=== PATIENT | male | born 1950 | race Caucasian/White ===

== ENCOUNTER 2020-12-04 18:46 | Inpatient (IN) | payer MEDICARE, SELFPAY ==
[2020-12-04] VITALS (7 sets, daily range): BP systolic 110–153; BP diastolic 57–82; PULSE 92–106; RESP 20–28; TEMP 36.3–36.8; O2SAT 92–100; BMI 46.7
--- NOTE | ~2020-12-04 | US_ITS ---
EXAMINATION: US renal BI EXAM DATE: 12/05/2020 08:57 INDICATION: Acute kidney insufficiency. TECHNIQUE: Multiple grayscale and Doppler images of the kidneys were obtained (by a technologist who performed the scan) and subsequently reviewed. There is no prior study for comparison. FINDINGS: Severe bilateral renal cortical thinning. Right kidney: There is normal contour and echogenicity. It measures 10.6 x 5.0 x 5.0 centimeters. T here are no focal renal lesions identified. There is no hydronephrosis. Left kidney: There is normal contour and echogenicity. It measures 10.5 x 5.6 x 5.6 centimeters. Th ere are no focal renal lesions identified. There is no hydronephrosis. Bladder unremarkable. IMPRESSION: Bilateral renal cortical thinning, atrophy. No hydronephrosis. Reviewed, dictated and finalized at location A. RUNNER
--- NOTE | ~2020-12-04 | NM_ITS ---
EXAMINATION: NM dread stress w perfusion DATE: 12/06/2020 13:25 INDICATION: Chest pain TECHNIQUE: Rest images were obtained following intravenous administration of 9.2 mCi Tc99m tetrofosmi n (Myoview). The patient was infused intravenously with Lexiscan (Regadenoson). Then, 28.3 mCi Tc99m tetrofosmin (Myoview) was administered intravenously, and stress images were obtained. Data was recon structed into short axis and horizontal and vertical long axis SPECT images. Gated SPECT images were also obtained. COMPARISON: None. FINDINGS: Small mild reversible perfusion defect involving the apical septal and mid anteroseptal seg ments bilingual executive assistant with ischemia. There is normal left ventricular chamber size, wall motion and ejectio n fraction. Left ventricular ejection fraction measures 57%. IMPRESSION: 1. Small region of mild reversible ischemia in the left anterior descending coronary artery vascular distribution involving the apical septal and mid anteroseptal segments. 2. Left ventricular ejection fraction measuring 57%. Reviewed, dictated and finalized at location A. NG MACHINE OPERATOR IMPRESSION: 1. Small region of mild reversible ischemia in the left anterior descending cor onary artery vascular distribution involving the apical septal and mid anterose ptal segments. 2. Left ventricular ejection fraction measuring 57%.
--- NOTE | ~2020-12-04 | XR_ITS ---
XR chest 1V portable DATE: 12/12/2020 05:44 INDICATION: Shortness of breath. Pneumonia. TECHNIQUE: Portable upright AP chest on December 12, 2020 at 0537 hours COMPARISON: September 10, 2021 portable AP chest at 1845 hours FINDINGS: There are bilateral pulmonary infiltrates, particularly in the left mid to upper and bilate ral lower lung donaldson. The infiltrates are increased since December 11, 2020. Heart size is not optimally evaluated on AP projection because of magnification. Heart size appears b orderline or enlarged. There is pulmonary vascular redistribution on this upright examination suggest ing pulmonary venous hypertension. There is minimal if any pleural effusion. No pneumothorax. IMPRESSION: Bilateral infiltrates involving particularly left mid to upper and bilateral lower lungs Borderline or increased heart size and pulmonary vascular redistribution, suggesting mild congestive heart failure Reviewed, dictated and finalized at location A. PHYSICIST IMPRESSION: Bilateral infiltrates involving particularly left mid to upper and bilateral lower lungs Borderline or increased heart size and pulmonary vascular redistribution, sugge sting mild congestive heart failure
--- NOTE | ~2020-12-04 | XR_ITS ---
EXAMINATION: XR chest 1V portable DATE: 12/08/2020 10:48 INDICATION: Recurrent chest pain TECHNIQUE: frontal view of the chest was obtained. COMPARISON: Chest radiograph dated 12/04/2020 FINDINGS: Improved aeration in the bilateral lower lung zones with residual mild opacities along both lung base s which could represent atelectasis and/or pneumonia. No marrow edema, pleural effusion or pneumothor ax. The cardiomediastinal silhouette is within normal limits for AP technique. Visualized bones and s oft tissues are unremarkable. IMPRESSION: 1. Mild bibasilar opacities which could represent atelectasis and/or pneumonia. Reviewed, dictated and finalized at location A. AND TREE SERVICE SPRAY SUPERVISOR
--- NOTE | ~2020-12-04 | XR_ITS ---
EXAMINATION: XR chest 1V portable DATE: 12/11/2020 18:45 INDICATION: Shortness of breath. TECHNIQUE: A single frontal view of the chest was obtained. COMPARISON: Chest single view 12/08/2020 FINDINGS: There are mild airspace opacities in the mid and lower lung zones. No pleural effusion or p neumothorax. The heart size is normal. IMPRESSION: 1. Mild airspace opacities in the mid and lower lung zones with worsening on the right, consistent wi th atelectasis versus pneumonia. Reviewed, dictated and finalized at location A. NESS INSTRUCTOR IMPRESSION: 1. Mild airspace opacities in the mid and lower lung zones with worsening on th e right, consistent with atelectasis versus pneumonia.
--- NOTE | ~2020-12-04 | XR_ITS ---
EXAMINATION: XR chest 1V portable EXAM DATE: 12/04/2020 20:10 INDICATION: Shortness of breath and left-sided chest pain. Dizziness. Nausea. TECHNIQUE: Portable AP frontal chest x-ray was obtained. There is no prior study for comparison. FINDINGS: Exam is underpenetrated. Probable patchy right basilar airspace disease, could be infection , pneumonia. Follow-up PA and lateral recommended when acute symptoms resolve to exclude underlying c hronic process. There is cardiomegaly. There is no pneumothorax suspected. There are no pleural effusions. There are no osseous abnormalities identified. IMPRESSION: Probable right basilar nonspecific airspace disease; please clinically correlate. Reviewed, dictated and finalized at location A. ION MERCHANDISER IMPRESSION: Probable right basilar nonspecific airspace disease; please clinica lly correlate.
--- NOTE | ~2020-12-04 | CT_ITS ---
EXAMINATION: CT brain wo con EXAM DATE: 12/04/2020 19:58 INDICATION: Dizziness. TECHNIQUE: Spiral CT of the head was performed without contrast. Axial, coronal and sagittal images were reviewed. The dose-length product (DLP) for this examination was 681.00 mGy-cm. The exposure w as tailored according to patient size, and iterative reconstruction (ASIR) was used as additional dos e reduction technique. There is no prior study for comparison. FINDINGS: There is no acute intraparenchymal hemorrhage. No evidence of intraparenchymal brain mass lesion. No evidence of acute infarction. Please note that initial head CT has limited sensitivity f or small or acute infarctions. There is mild periventricular and subcortical hypodensity, nonspecific but probably related to small vessel ischemic disease. There is mild prominence of the sulci and v entricles related to cerebral atrophy. There is intracranial carotid arteriosclerosis. There are n o extra-axial collections. There is no mass effect or midline shift. Patient has had bilateral ocul ar lens surgery. Soft tissue is unremarkable. The visualized sinuses and mastoid air cells are well aerated. IMPRESSION: 1. No acute intracranial findings. 2. Chronic age related findings. Reviewed, dictated and finalized at location A. R FABRICATOR
--- NOTE | 2020-12-04 18:55 | PC.NURSE ---
placed on o2 at 2 lpm nc for room air sat 92%
--- NOTE | 2020-12-04 19:00 | ECG_ITS ---
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
[2020-12-04] MEDS: SODIUM CHLORIDE 0.9% IV 1,000 ML 999 ML IV CONT ×2 (19:33→20:25)
--- NOTE | 2020-12-04 19:35 | PC.NURSE ---
pt states he isn't able to urinate due to the tip of my ashley is closing. then explains that pt is uncircumcised and it wont come out. pt states hes seeing a doctor for this issue. states pt may be able to go with a urinal while he lays on his side. refused straight cath. notified.
[2020-12-04 19:45] LABS: Basophils Absolute Auto 0.1 K/mm3 (0.0-0.1); Basophils Percent Auto 0.4 % (0.2-1.2); Eosinophils Absolute Auto 0.3 K/mm3 (0-0.3); Eosinophils Percent Auto 1.9 % (0-4.4); Hematocrit 41.4 % (42.0-52.0); Immature Granulocyte Absolute 0.05 K/mm3 (0.00-0.031); Immature Granulocyte Percent A 0.4 % (0-0.5); Lymphocytes Absolute Auto 2.34 K/mm3 (0.9-3.2); Lymphocytes Percent Auto 16.4 % (18.3-44.2); Mean Corpuscular HGB Conc 33.8 g/dl (32-36); Mean Corpuscular Hemoglobin 32.2 pg (26-34); Mean Corpuscular Volume 95.2 fl (80-100); Mean Platelet Volume 12.2 fl (7.4-10.4); Neutrophils Absolute Auto 10.5 K/mm3 (1.3-6.7); Neutrophils Percent Auto 73.9 % (45.5-73.1); Platelet Count Result 169 k/mm3 (150-375); Red Blood Count 4.35 M/mm3 (4.6-6.20); Red Cell Distribution Width 13.7 % (11.5-14.5); White Blood Count 14.2 K/mm3 (4.5-10.0)
--- NOTE | 2020-12-04 19:51 | PC.NURSE ---
pt to xray/ct
[2020-12-04 19:57] LABS: Alanine Aminotransferase 16 U/L (4-50); Albumin Level 4.1 g/dL (3.5-5.1); Alkaline Phosphatase 84 U/L (38-126); Anion Gap 11 mmol/L (8-16); Aspartate Amino Transferase 21 U/L (17-59); Bilirubin,Total 0.7 mg/dL (0.2-1.3); Blood Urea Nitrogen 40 mg/dL (9-20); Calcium 8.8 mg/dL (8.4-10.2); Carbon Dioxide 24 mmol/L (22-30); Chloride 104 mmol/L (98-107); Estimated CRCL calculation 19 ml/min; Estimated Glomerular Filt Rate 15; Glucose 271 mg/dL (75-110); Lactic Acid Reflex 1.2 mmol/L (0.7-2.1); Potassium 4.2 mmol/L (3.4-5.0); Sodium 139 mmol/L (137-145)
[2020-12-04 20:11] LABS: NT Pro B Type Natriuretic Pept 4670 PG/ML (5-100); Troponin I 0.102 ng/mL (0.000-0.034)
[2020-12-04] MEDS: ASPIRIN 81 MG CHEWABLE TABLET 324 MG PO (20:25)
--- NOTE | 2020-12-04 20:29 | ED.GENADULT ---
HPI - General Adult General Chief complaint: Dizziness Stated complaint: headache dizziness Time Seen by Provider: 12/04/20 19:19 History of Present Illness HPI narrative: Patient is a 70-year-old gentleman who presents the emergency department with chief complaint of lightheadedness and generalized weakness. Patient states is going on for approximately 3 days states he was just started on Trulicity on Sunday. Patient states that he has history of renal insufficiency. The patient reports that today he felt weak and was having difficulty walking around patient was tested for Covid this week and has been negative Related Data Allergies Allergy/AdvReac Type Severity Reaction Status Date / Time Penicillins Allergy Severe Anaphylaxis Verified 12/04/20 18:57 Sulfa (Sulfonamide Allergy Unknown Unknown Verified 12/04/20 18:57 Antibiotics) Review of Systems Review of Systems: Narrative: A 10 system review of systems was completed on the patient and is negative except for what is stated in the HPI. Nursing and ancillary documentation was reviewed. PMFSH Social History Social History Gender identity (if verbalized by the patient): Male Comments Past history of diabetes hypertension and renal insufficiency Social history the patient denies illicit drug use Exam Narrative: Exam Narrative: GENERAL: Well-appearing, well-nourished, and in no acute distress. HEAD: Normocephalic, atraumatic. EYES: PERRLA and EOMI. ENT: Nares clear, no rhinorrhea or epistaxis. Mucous membranes moist. NECK: Supple. CHEST: Clear to auscultation. No respiratory distress. HEART: Regular rate and rhythm. No murmur heard. Normal peripheral pulses. ABDOMEN: Soft, nontender, nondistended, normal active bowel sounds. EXTREMITIES: Normal range of motion. No edema. SKIN: Warm, dry, no rash. NEURO: No focal deficits. Alert and oriented x3. PSYCH: Normal mood and affect. Course Vital Signs Vital signs: Vital Signs Temperature 36.8 C 12/04/20 18:47 Pulse Rate 106 H 12/04/20 18:47 Respiratory Rate 28 H 12/04/20 18:47 Blood Pressure 117/79 12/04/20 18:47 Pulse Oximetry 92 12/04/20 18:47 Temperature 36.8 C 12/04/20 18:47 Pulse Rate 102 H 12/04/20 20:30 Respiratory Rate 21 H 12/04/20 20:30 Blood Pressure 115/82 12/04/20 20:30 Pulse Oximetry 96 12/04/20 20:30 Medical Decision Making Vital Signs Vital Signs: Vital Signs Temperature 36.8 C 12/04/20 18:47 Pulse Rate 106 H 12/04/20 18:47 Respiratory Rate 28 H 12/04/20 18:47 Blood Pressure 117/79 12/04/20 18:47 Pulse Oximetry 92 12/04/20 18:47 Temperature 36.8 C 12/04/20 18:47 Pulse Rate 102 H 12/04/20 20:30 Respiratory Rate 21 H 12/04/20 20:30 Blood Pressure 115/82 12/04/20 20:30 Pulse Oximetry 96 12/04/20 20:30 Lab Data Result diagrams: 12/04/20 19:39 12/04/20 19:39 Labs: Lab Results 12/04/20 12/04/20 12/04/20 Range/Units 19:39 19:39 19:39 WBC 14.2 H (4.5-10.0) K/mm3 RBC 4.35 L (4.6-6.20) M/mm3 Hgb 14.0 (14.0-18.0) g/dL Hct 41.4 L (42.0-52.0) % MCV 95.2 (80-100) fl MCH 32.2 (26-34) pg MCHC 33.8 (32-36) g/dl RDW 13.7 (11.5-14.5) % Plt Count 169 (150-375) k/mm3 MPV 12.2 H (7.4-10.4) fl Immature Gran % (Auto) 0.4 (0-0.5) % Neut % (Auto) 73.9 H (45.5-73.1) % Lymph % (Auto) 16.4 L (18.3-44.2) % [place] % (Auto) 7.0 (2.6-8.5) % Eos % (Auto) 1.9 (0-4.4) % Baso % (Auto) 0.4 (0.2-1.2) % Lymph # (Auto) 2.34 (0.9-3.2) K/mm3 [place] # (Auto) 1.0 H (0.1-0.6) K/mm3 Eos # (Auto) 0.3 (0-0.3) K/mm3 Baso # (Auto) 0.1 (0.0-0.1) K/mm3 Abs Immat Gran (auto) 0.05 H (0.00-0.031) K/mm3 Absolute Neuts (auto) 10.5 H (1.3-6.7) K/mm3 Absolute Nucleated RBC 0.0 (0.0-0.012) K/mm3 Nucleated RBC % 0.0 (0.0-0.2) % Sodium 139 (137-145) mmol/L Potassium 4.2 (3.4-5.0) mmol/L Chloride 104
[2020-12-04 20:32] LABS: Add Urine Microscopic? YES; Amorphous Sediment Urine Few; Appearance Urine Cloudy (Clear); Bacteria Urine 1+ /hpf; Bilirubin Urine Negative (Negative); Blood Urine Negative (Negative); Color Urine Yellow (Yellow); Glucose Urine UA Negative (Negative); Ketones Urine Negative (Negative); Leukocyte Esterase Ur Negative LEU/UL (Negative); Mucus Urine Rare /lpf; Nitrate Urine Negative (Negative); Protein Urine 1+ mg/dL (Negative); RBC Urine 0-2 /hpf (0-2); Specific Grav Ur 1.012 (1.001-1.035); Squamous Epithelial Cell Urine Rare /hpf (Few); Urobilinogen Urine Negative mg/dL (<2.0)
--- NOTE | 2020-12-04 22:05 | PM.IMHP ---
H&P: HPI History of Present Illness Date/Time: 12/04/20 23:35 Chief Complaint: Dizziness, headache, nausea Narrative: Juan Miguel Bobby is a 70 year old male with a past medical history of diabetes, hypertension, hyperlipidemia, obesity, obstructive sleep apnea, BPH and chronic kidney disease who presented to the ER with dizziness, nausea and headache. The patient reports he was started on Trulicity on November 18. He takes Trulicity on Wednesdays. After he took Trulicity this week he began having lightheadedness with standing, dizziness with the room spinning and nausea. He had also noticed that he had become increasingly more weak over the last 3 days. He associated headache with pressure in the top of his head that was a 5/10 in intensity and was made worse with exertion or position changes. He reports that he has been having some decreased appetite with the Trulicity but denies any nausea, diaphoresis or changes in bowel or urinary habits. He had noticed a mild cough that would occur once or twice a day over the last several days. The cough is nonproductive. He denies any fevers or chills. He was tested for COVID yesterday and they told him he they would call him if the COVID was positive. He did not receive call. He was tested for COVID as he is supposed to have an outpatient colonoscopy on Sunday. He reports that over the last 3 days he has noticed chest pain. He reported that the 1st night occur while he was sitting watching TV and lasted about fiber 6 hours. He went to bed and laid down and after a couple of hours the pain resolved. He reports the pain is pressure-like in nature and extends down the sides of both ribs. The 2nd 90 was already in bed when he developed the pressure sensation. He reports that the sensation would get worse when he would stretches arms back to push himself up off the bed. He did have some increased dyspnea with lying back but he thought that this was more due to exertion. He denies any increased lower extremity swelling. He denies a history of CHF but is on 2 diuretics at home. He denies any palpitations. He has not noticed any diaphoresis. He did have some nausea when he had onset of dizziness. It looks like he is on meclizine chronically. Review of Systems Review of Systems: Narrative: 12 systems were reviewed with pertinent positives and negatives per HPI. Except as documented in the HPI, all other systems were reviewed and are negative. [facility] Past Medical History Medical History (Updated 12/05/20 @ 02:50 by Cheyenne Gramajo DO) BPH (benign prostatic hyperplasia) Chronic kidney disease, stage 3 Baseline creatinine 3.14 Diabetes mellitus 12/05/2020 hemoglobin A1c 9.4 Essential hypertension GERD (gastroesophageal reflux disease) Hyperlipidemia Internal hemorrhoids Irritable bowel syndrome Morbid obesity Obstructive sleep apnea on CPAP Surgical History Surgical History (Updated 12/05/20 @ 02:44 by Cheyenne Gramajo DO) History of bilateral carpal tunnel release 2012 History of bilateral cataract extraction History of colonoscopy with polypectomy History of lumbar surgery L4-L5 fusion 1992 History of vasectomy S/P cubital tunnel release Bilateral 2012 Family History Family History Mother Diabetes mellitus Lupus Bone cancer Father Kidney failure Dialysis patient Malignant neoplasm of prostate Sibling Liver cancer A sister with some type of GI cancer Skin cancer Another sister with skin cancer Renal cell carcinoma Brother Social History Social History (Updated 12/05/20 @ 02:41 by Cheyenne Gramajo DO) Social History: He lives in [place] with his of 46 years. They have 2 healthy adult children. He is retired from the [employer]. Smoked 2 packs of cigarettes per day for approximately 15 years. He used to binge drink (30 drinks each weekend) when he was much younger but has not
--- NOTE | 2020-12-04 22:38 | ADMGEN ---
This patient, Juan Miguel Bobby, was admitted to IMU Room 202-01 on 12/04/20 at 2210. Patient/family oriented to hospital policies and general routines including ID bracelet, bed and alarms, visiting hours, pain management, procedures, bathroom and other care routines, personal items, smoking policy, room service/diet, and visiting hours. Information on how to activate the Rapid Response Team has been discussed. Patient/Family are encouraged to report perceived risks to care and to ask questions if they do not understand what they are told or what they should do.
[2020-12-04] MEDS: SODIUM CHLORIDE 0.9% IV 1,000 ML 125 ML IV CONT (23:57)
[2020-12-05] VITALS (15 sets, daily range): BP systolic 121–144; BP diastolic 72–100; PULSE 81–106; RESP 20–32; TEMP 36.2–36.9; O2SAT 93–100
[2020-12-05 00:57] LABS: Hemoglobin A1C 9.4 % (<5.7)
[2020-12-05 01:08] LABS: Troponin I 0.184 ng/mL (0.000-0.034)
[2020-12-05 02:40] LABS: Basophils Absolute Auto 0.1 K/mm3 (0.0-0.1); Basophils Percent Auto 0.4 % (0.2-1.2); Eosinophils Absolute Auto 0.2 K/mm3 (0-0.3); Eosinophils Percent Auto 1.8 % (0-4.4); Hematocrit 37.4 % (42.0-52.0); Hemoglobin 12.7 g/dL (14.0-18.0); Immature Granulocyte Absolute 0.03 K/mm3 (0.00-0.031); Immature Granulocyte Percent A 0.2 % (0-0.5); Lymphocytes Absolute Auto 3.72 K/mm3 (0.9-3.2); Lymphocytes Percent Auto 30.6 % (18.3-44.2); Mean Corpuscular Hemoglobin 31.9 pg (26-34); Mean Platelet Volume 12.6 fl (7.4-10.4); Monocytes Percent Auto 8.2 % (2.6-8.5); Neutrophils Absolute Auto 7.1 K/mm3 (1.3-6.7); Neutrophils Percent Auto 58.8 % (45.5-73.1); Platelet Count Result 148 k/mm3 (150-375); Red Blood Count 3.98 M/mm3 (4.6-6.20); Red Cell Distribution Width 13.6 % (11.5-14.5); White Blood Count 12.1 K/mm3 (4.5-10.0)
[2020-12-05 02:53] LABS: Alanine Aminotransferase 14 U/L (4-50); Albumin Level 3.7 g/dL (3.5-5.1); Alkaline Phosphatase 76 U/L (38-126); Anion Gap 8 mmol/L (8-16); Aspartate Amino Transferase 17 U/L (17-59); Bilirubin,Total 0.5 mg/dL (0.2-1.3); Blood Urea Nitrogen 40 mg/dL (9-20); Calcium 8.7 mg/dL (8.4-10.2); Carbon Dioxide 24 mmol/L (22-30); Chloride 109 mmol/L (98-107); Estimated CRCL calculation 21 ml/min; Estimated Glomerular Filt Rate 17; Glucose 152 mg/dL (75-110); Potassium 3.5 mmol/L (3.4-5.0); Sodium 141 mmol/L (137-145)
[2020-12-05] MEDS: METOPROLOL SUCCINATE EXT REL 100 MG TABCR PO ×2 (03:02→21:43)
[2020-12-05] MEDS: TAMSULOSIN HCL 0.4 MG CAPSULE 0.8 MG PO ×2 (03:03→21:44)
[2020-12-05 03:05] LABS: Troponin I 0.192 ng/mL (0.000-0.034)
[2020-12-05 08:14] LABS: Glucose Point of Care 143 (65-105)
[2020-12-05] MEDS: MECLIZINE HCL 25 MG TABLET PO ×2 (09:01→18:26)
[2020-12-05] MEDS: GLIMEPIRIDE 2 MG TABLET PO (09:01)
[2020-12-05] MEDS: FENOFIBRATE NANOCRYSTALLIZED 145 MG TABLET PO (09:01)
[2020-12-05] MEDS: ENOXAPARIN 30 MG/0.3 ML SYRINGE SUB-Q (09:01)
[2020-12-05] MEDS: NIFEdipine 30 MG TAB.ER.24 90 MG PO (09:01)
[2020-12-05] MEDS: FAMOTIDINE 20 MG TABLET PO ×2 (09:02→18:26)
[2020-12-05] MEDS: ASPIRIN 81 MG CHEWABLE TABLET PO (09:02)
[2020-12-05] MEDS: ATORVASTATIN 40 MG TABLET PO (09:02)
[2020-12-05] MEDS: SODIUM CHLORIDE 0.9% IV 1,000 ML 100 ML IV CONT (10:28)
--- NOTE | 2020-12-05 11:30 | PC.NURSE ---
This patient, Juan Miguel Bobby, was received from [facility] on 12/05/20 at 1130. Received report from KRISTINA Salgado. Patient/family oriented to unit policies and routines.
--- NOTE | 2020-12-05 11:34 | PC.NURSE ---
This patient, Juan Miguel Bobby, was transferred to [facility] on 12/05/20 at 1125. Personal belongings sent with patient. Report given to Emiliano ACEVEDO. Appropriate documentation sent with patient.
[2020-12-05 12:06] LABS: Glucose Point of Care 187 (65-105)
[2020-12-05 12:49] LABS: Troponin I 0.097 ng/mL (0.000-0.034)
--- NOTE | 2020-12-05 15:15 | PM.IMPN ---
Progress Note: A&P Assessment and Plan (1) Postural dizziness with near syncope: Code(s): R42 - Dizziness and giddiness; R55 - Syncope and collapse Status: Acute Assessment and Plan: Patient was started on Trulicity and states that has been having spells of dizziness and lightheadedness since then. 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 (5) Type 2 diabetes mellitus with hyperglycemia: Qualifiers: Diabetes mellitus [facility] insulin use: without [facility] use Qualified Code(s): E11.65 - Type 2 diabetes mellitus with hyperglycemia Code(s): E11.65 - Type 2 diabetes mellitus with hyperglycemia Status: Acute Assessment and Plan: 1800 calorie restricted diet Accu checks ACHS Continue to monitor (6) Obstructive sleep apnea on CPAP: Code(s): G47.33 - Obstructive sleep apnea (adult) (pediatric); Z99.89 - Dependence on other enabling machines and devices Status: Acute Assessment and Plan: Continue CPAP at night time. Subjective Date/time seen: 12/05/20 15:15 States that is still feeling dizzy and lightheaded. Review of Systems Review of Systems: Narrative: Started a new drug and has had dizziness, lightheadedness since 3 days ago also trouble voiding. Constitutional: Comments: no fevers, no rigors, no chills. Eyes: Comments: no vision changes. ENT: Comments: no ear pain, no nasal congesion. Cardiovascular: Comments: no chest pain. Respiratory: Comments: no sob, no cough, no sputum production. Gastrointestinal: Comments: no abdominal pain, nausea but no vomiting. Musculoskeletal: Comments: no joint pain Exam Narrative: Exam Narrative: Lying in bed Const: General: comfortable, no acute distress, alert, awake and Physically active Nutritional Appearance: overweight Orientation/consciousness: patient oriented x3 HENMT: Head: normocephalic Ears: hearing grossly normal bilaterally General nose exam: Normal external nose present Face and sinus: normal facial exam Eyes: Pupils: Equal, round and reactive pupils present EOM: EOMs intact bilaterally Neck: Neck: no lymphadenopathy, supple and no JVD Resp: Effort & Inspection: able to speak in complete sentences Auscultation: clear to auscultation bilaterally Cardio: Jugular venous distension: no JVD Rate: regular rate Rhythm: regular rhythm GI: Inspection: distended, Pannus present and obesity GI Palp: Yes Soft to palpation and Yes No hepatosplenomegaly present Skin: Rashes: no rashes Neuro: General: patient oriented x3 and CN's II-XI intact bilaterally Cranial nerves: Yes CN's II-XII intact bilaterally and Yes Bilaterally intact EOM present Cognition (Neuro): normal cognition Speech: normal speech Motor exam (neuro): 5/5 motor strength present throughout Extrem: General: no pedal edema Objective Data Vital Signs Vital Signs: Vital Signs - 24 hr 12/04/20 18:47 12/04/20 19:34 12/04/20 20:30 Temperature 98.2 F Pulse Rate 106 H 100 102 H Respiratory Rate 28 H 24 H 21 H Blood Pressure 117/79 124/76 115/82 Pulse Oximetry 92 95 96 12/04/20 21:25 12/04/20 21:59 12/04/20 22:15 Temperature Pulse
[2020-12-05 17:07] LABS: Glucose Point of Care 181 (65-105)
--- NOTE | 2020-12-05 17:13 | PM.CNCAR ---
Assessment and Plan Assessment and plan (1) Elevated troponin: Code(s): R77.8 - Other specified abnormalities of plasma proteins Status: Acute Assessment and Plan: Patient has a slight elevation of troponin, fairly flat troponin profile. However he does have chest discomfort which has some elements of angina although I suspect is musculoskeletal. Because of his multiple risk factors, he needs further evaluation. Echo scheduled for tomorrow. Schedule Lexiscan for Sunday or Sunday. Pt's morbid obeisty will decrease the sensitivity and specificity of the results, but w/ this degree of CKD the best option. If the Lexiscan is abnormal, I recommend medical therapy rather than invasive evaluation because of his chronic kidney disease and risk of renal failure with IV contrast exposure, unless the patient develops cardiac instability. Cont ASA, atorvastatin and BP/DM control. (2) Acute kidney injury superimposed on chronic kidney disease: Code(s): N17.9 - Acute kidney failure, unspecified; N18.9 - Chronic kidney disease, unspecified Status: Acute Assessment and Plan: Acute on chronic kidney disease, getting IV fluids. Patient tells me his baseline renal function is 20%, followed by the Dr. Paul Martinez. GFR at baseline, creat not quite there yet; reduce IV fluids. Check orthostatics tmr. Ordered daily BMP. (3) Orthostatic hypotension: Code(s): I95.1 - Orthostatic hypotension Status: Acute Assessment and Plan: Presented with dehydration and orthostatic hypotension thought to be due to Trulicity and his diuretics, torsemide and spironolactone. (4) Hypertension: Code(s): I10 - Essential (primary) hypertension Status: Acute Assessment and Plan: History of hypertension, reasonable control at the moment. History of Present Illness History of Present Illness Consult date/time: 12/05/20 17:13 Consult reason: Other (Elevated troponins) Reason For Visit: acute kidney injury, troponin elevation Narrative: 12/05/2020 Juan Miguel Bobby is a 70-year-old male with whom we were asked to see at the request of the hospitalist for advice and opinion regarding his elevated troponins in consultation. Past medical history of diabetes, hypertension, hyperlipidemia, CKD (followed by Dr. Paul Martinez; pt reports renal fxn is 20%) obesity, obstructive sleep apnea, and morbid obesity. He presented to the ER with dizziness, nausea and headache after starting Trulicity recently. The patient reports that he has had several episodes of chest discomfort since . This happens particularly when he is using his arms such as pulling himself up out of a chair or the bathtub, or straining. He will develop squeezing discomfort on the lateral aspects of his chest and abdomen associated with shortness of breath with any effort. He sits in his chair and rests, and the discomfort will fade away after a few hours. He does have some soreness and tenderness of the left chest. He has no history of heart disease and has had no recent cardiac testing. At home he could only walk for 20 ft before he has to stop because of severe back pain. Since admission, the patient was found to have acute on chronic renal failure and dehydration has been given IV fluids. He still feels dizzy with movement. His diuretics and Trulicity were held. His diabetes appears poorly controlled . Review of Systems Constitutional: Constitutional: Reports body ache(s), Reports lethargy and Reports weakness Eyes: Eyes: Reports no additional eye complaints ENT: Denies epistaxis Cardiovascular: Cardiovascular:
[2020-12-05] MEDS: SODIUM CHLORIDE 0.9% IV 1,000 ML 50 ML IV CONT (18:30)
[2020-12-05] MEDS: OMEGA 3 POLYUNSAT FATTY ACIDS 1 GM CAP PO (21:44)
[2020-12-05 23:46] LABS: Glucose Point of Care 182 (65-105)
[2020-12-06] VITALS (10 sets, daily range): BP systolic 104–147; BP diastolic 53–70; PULSE 59–96; RESP 18–24; TEMP 36.3–37; O2SAT 92–97
--- NOTE | 2020-12-06 | ECHO_ITS ---
Patient Info Name: Juan Miguel Bobby Age: 70 years : 1950 Gender: Male Ht: 64 in Wt: 272 lbs BSA: 2.43 m2 HR: 89 bpm BP: 147 / 70 mmHg Heart Rhythm: Sinus Rhythm Technical Quality: Good Exam Date: 12/06/2020 1:21 PM Exam Location: [facility] Patient Status: Inpatient Admit Date: 12/04/2020 Staff Ordering Physician: Cheyenne Gramajo DO Lawn Specialist: Zeeshan Rich RDCS, RT Attending Provider: Cheyenne Gramajo DO Referring Physician: Avila RIVERA; Exam Type: CA echo doppler color flow Study Info Indications R06.00 - Dyspnea, unspecified Complete two-dimensional, color flow and Doppler transthoracic echocardiogram is performed. Summary 1. Technically difficult study with limited views. 2. Complete two-dimensional, color flow and Doppler transthoracic echocardiogram is performed. 3. Left ventricular systolic function is normal, estimated at 55-60%. 4. There is moderately increased left ventricular wall thickness. 5. The left ventricular diastolic function is grade I diastolic dysfunction. 6. There is trace tricuspid valve regurgitation. 7. Mild pulmonary hypertension, estimated pulmonary arterial systolic pressure is 39 mmHg. Left Ventricle Left ventricular chamber dimension is normal. Left ventricular systolic function is normal, estimated at 55-60%. There is moderately increased left ventricular wall thickness. The left ventricular diastolic function is grade I diastolic dysfunction. Right Ventricle Right ventricular chamber dimension is normal. Right ventricular systolic function is normal. Left Atria Left atrial chamber dimension is normal. Right Atria Right atrial chamber dimension is normal. Aortic Valve The aortic valve is not well visualized. There is no aortic valve stenosis. There is no aortic valve regurgitation. Pulmonic Valve The pulmonic valve is not well visualized. There is trace pulmonic regurgitation. Mitral Valve The mitral valve has normal leaflets. There is trace mitral valve regurgitation. The mitral valve annulus is mildly calcified. Tricuspid Valve The tricuspid valve leaflets are normal. There is trace tricuspid valve regurgitation. Mild pulmonary hypertension, estimated pulmonary arterial systolic pressure is 39 mmHg. Pericardium/Pleural The pericardium appears normal. There is trivial pericardial effusion. Inferior Vena Cava Normal inferior vena cava with >50% collapse upon inspiration consistent with normal right atrial pressure, 5 mmHg. Aorta The aortic root size at the sinus of Valsalva is normal. There is mild aortic atherosclerosis. Left Ventricular Outflow Tract Name Value Normal LVOT 2D LVOT Diameter 2.1 cm LVOT Doppler LVOT Peak Gradient 2 mmHg LVOT Mean Gradient 1 mmHg LVOT VTI 11 cm LVOT VTI/AV VTI Ratio 0.7 LVOT Stroke Volume 39 ml LVOT CO 3.5 l/min LVOT CI 1.4 l/min/m2 Mitral Valve -
[2020-12-06 05:40] LABS: Anion Gap 9 mmol/L (8-16); Blood Urea Nitrogen 37 mg/dL (9-20); Calcium 8.9 mg/dL (8.4-10.2); Carbon Dioxide 21 mmol/L (22-30); Chloride 112 mmol/L (98-107); Estimated CRCL calculation 26 ml/min; Estimated Glomerular Filt Rate 22; Glucose 195 mg/dL (75-110); Sodium 142 mmol/L (137-145)
[2020-12-06 07:55] LABS: Glucose Point of Care 164 (65-105)
[2020-12-06] MEDS: ASPIRIN 81 MG CHEWABLE TABLET PO (08:55)
[2020-12-06] MEDS: ATORVASTATIN 40 MG TABLET PO (08:55)
[2020-12-06] MEDS: ENOXAPARIN 30 MG/0.3 ML SYRINGE SUB-Q (08:55)
[2020-12-06] MEDS: FAMOTIDINE 20 MG TABLET PO ×2 (08:56→16:34)
[2020-12-06] MEDS: NIFEdipine 30 MG TAB.ER.24 90 MG PO (08:56)
[2020-12-06] MEDS: MECLIZINE HCL 25 MG TABLET PO ×2 (08:56→16:34)
[2020-12-06] MEDS: FENOFIBRATE NANOCRYSTALLIZED 145 MG TABLET PO (08:56)
[2020-12-06 09:18] LABS: Basophils Absolute Auto 0.1 K/mm3 (0.0-0.1); Basophils Percent Auto 0.4 % (0.2-1.2); Eosinophils Absolute Auto 0.3 K/mm3 (0-0.3); Eosinophils Percent Auto 1.9 % (0-4.4); Hematocrit 38.3 % (42.0-52.0); Hemoglobin 12.6 g/dL (14.0-18.0); Immature Granulocyte Absolute 0.05 K/mm3 (0.00-0.031); Immature Granulocyte Percent A 0.4 % (0-0.5); Immature Platelet Fraction Pct 12.7 % (0.9-11.2); Lymphocytes Absolute Auto 3.04 K/mm3 (0.9-3.2); Lymphocytes Percent Auto 23.3 % (18.3-44.2); Mean Corpuscular HGB Conc 32.9 g/dl (32-36); Mean Corpuscular Hemoglobin 31.9 pg (26-34); Mean Platelet Volume 13.3 fl (7.4-10.4); Monocytes Absolute Auto 0.9 K/mm3 (0.1-0.6); Monocytes Percent Auto 6.9 % (2.6-8.5); Neutrophils Absolute Auto 8.8 K/mm3 (1.3-6.7); Neutrophils Percent Auto 67.1 % (45.5-73.1); Platelet Count Result 163 k/mm3 (150-375); Red Blood Count 3.95 M/mm3 (4.6-6.20); White Blood Count 13.1 K/mm3 (4.5-10.0)
[2020-12-06 09:35] LABS: Anion Gap 4 mmol/L (8-16); Blood Urea Nitrogen 33 mg/dL (9-20); Calcium 8.7 mg/dL (8.4-10.2); Carbon Dioxide 21 mmol/L (22-30); Chloride 114 mmol/L (98-107); Estimated CRCL calculation 25 ml/min; Estimated Glomerular Filt Rate 21; Glucose 248 mg/dL (75-110); Potassium 4.1 mmol/L (3.4-5.0); Sodium 139 mmol/L (137-145)
--- NOTE | 2020-12-06 10:42 | PC.NURSE ---
To Nuclear medicine per bed.
--- NOTE | 2020-12-06 11:00 | EST_ITS ---
Patient Info Name: Juan Miguel Bobby Age: 70 years : 1950 Gender: Male Ht: 64 in Wt: 270 lbs BSA: 2.42 m2 Heart Rhythm: Sinus Rhythm Exam Date: 12/06/2020 11:39 AM Exam Location: [facility] Stress Patient Status: Inpatient Admit Date: 12/04/2020 Staff Ordering Physician: Isabela Parra MD Attending Provider: sae parker md Exercise Technologist: Maya Madison RDCS Exercise Physician: Sae Parker MD Exam Type: CA stress dread w NM Study Info Indications R07.9 - Chest pain, unspecified A regadenoson stress test was performed. Summary 1. No abnormal ST/T wave changes with exercise. 2. No arrhythmias were observed during the examination. 3. Please correlate with nuclear medicine images, reported separately. 4. No chest discomfort with stress test. Protocol: Lexiscan Stress ECG Details Stage: REST Duration (min): 1 min : 57 sec HR (bpm): 87 SBP (mmHg): --- DBP (mmHg): --- Stage: REST Duration (min): 2 min : 44 sec HR (bpm): 87 SBP (mmHg): 124 DBP (mmHg): 75 Stage: REST Duration (min): 14 min : 23 sec HR (bpm): 85 SBP (mmHg): 124 DBP (mmHg): 75 Stage: STAGE 1 Duration (min): 1 min : 0 sec HR (bpm): 92 SBP (mmHg): 146 DBP (mmHg): 78 Stage: RECOVERY Duration (min): 1 min : 0 sec HR (bpm): 97 SBP (mmHg): 125 DBP (mmHg): 75 Stage: RECOVERY Duration (min): 2 min : 0 sec HR (bpm): 97 SBP (mmHg): 125 DBP (mmHg): 75 Stage: RECOVERY Duration (min): 3 min : 0 sec HR (bpm): 98 SBP (mmHg): 128 DBP (mmHg): 74 Stage: RECOVERY Duration (min): 3 min : 3 sec HR (bpm): 99 SBP (mmHg): 128 DBP (mmHg): 74 Rest HR: 85 bpm Peak HR: 99 bpm Rest Sys BP: 124 mmHg Peak Sys BP: 146 mmHg Max Pred HR: 150 bpm % Max Pred HR: 66 % Target HR: 128 bpm Max RPP: 14,454 bpm*mmHg BP Response: Normal blood pressure response Termination Reason: Completed protocol Cardiac Symptoms: Shortness of breath Total Time: 1 min : 0 sec Rest Carter BP: 75 mmHg Peak Carter BP: 78 mmHg Total Dose: 0.4 mg Resting ECG Normal sinus rhythm - normal ECG. Stress ECG No abnormal ST/T wave changes with exercise. Arrhythmias No arrhythmias were observed during the examination. Report Signatures
--- NOTE | 2020-12-06 13:00 | PC.NURSE ---
Returned from nuclear medicine ].
[2020-12-06 13:31] LABS: Glucose Point of Care 181 (65-105)
[2020-12-06] MEDS: PERFLUTREN LIPID MICROSPHERES 1.5 ML VIAL DILUTED TO 10 ML TOTAL VOLUME IV PUSH (13:41)
--- NOTE | 2020-12-06 15:31 | WPDURCON ---
Assessment and Plan Assessment and plan (1) Phimosis: Code(s): N47.1 - Phimosis Status: Acute Assessment and Plan: Discussed the need for a circumcision as it is inhibiting urination, and could potentially cause infection or ischemia to the glans. He will follow up with Dr. Wyman on 01/04/2021 at 9:15am at our [place]' office. (2) Acute kidney injury: Code(s): N17.9 - Acute kidney failure, unspecified Status: Acute Assessment and Plan: Not caused from retention, PVR was normal at 250cc. VINCE shows no hydronephrosis. Continue Flomax. Ok to remove hutchison. No further evaluation needed at this time. Urology Consult Note HPI Date Seen: 12/06/20 Requesting Physician: Cheyenne Gramajo DO Primary Care Provider: Rashard Berry, Consult Narrative Narrative: Juan Miguel Bobby is a 70 year old male who presented to the ER on 12/04/2020 for weakness and syncope. He is a known patient to our practice and see's Dr. Wyman. He has phimosis which was being treated with Clotrimazole and Betamethazone cream BID. It helped initially but hasn't for a few months. Since being in the hospital he told the staff that he is having trouble urinating because the urine gets trapped behind the foreskin. He has a hard time retracting his foreskin to urinate or to clean it. Dr. Wyman recommended a circumcision but he refused at the last OV in 09/2020. His urine culture is negative, WBC is 13.1 and creatinine is 3.00, VINCE shows no hydronephrosis but bilateral renal atrophy. He is on Tamsulosin for BPH as well, but his PVR was 250cc when he had a catheter placed. He denies chronic UTI's, hesitancy, straining, frequency, hematuria or feeling of incomplete emptying. Review of Systems Cardiovascular: Cardiovascular: Denies chest pain Respiratory: Respiratory: Reports no additional respiratory complaints Gastrointestinal: Gastrointestinal: Denies abdominal pain, Denies nausea and Denies vomiting Genitourinary: Genitourinary: Denies hematuria, Denies dysuria, Denies flank pain, Denies urinary hesitancy and Denies urinary urgency [facility] Past Medical History Medical History BPH (benign prostatic hyperplasia) Chronic kidney disease, stage 3 Baseline creatinine 3.14 Diabetes mellitus 12/05/2020 hemoglobin A1c 9.4 Essential hypertension GERD (gastroesophageal reflux disease) Hyperlipidemia Internal hemorrhoids Irritable bowel syndrome Morbid obesity Obstructive sleep apnea on CPAP Surgical History Surgical History History of bilateral carpal tunnel release 2012 History of bilateral cataract extraction History of colonoscopy with polypectomy History of lumbar surgery L4-L5 fusion 1992 History of vasectomy S/P cubital tunnel release Bilateral 2012 Family History Family History Mother Diabetes mellitus Lupus Bone cancer Father Kidney failure Dialysis patient Malignant neoplasm of prostate Sibling Liver cancer A sister with some type of GI cancer Skin cancer Another sister with skin cancer Renal cell carcinoma Brother Social History Social History Social History: He lives in [place] with his of 46 years. They have 2 healthy adult children. 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 Smoked 2 packs of cigarettes per day for approximately 15 years. He used to binge drink (30 drinks each weekend) when he was much younger but has not done so in at least 5 years. He denies any illicit substance use. Primary care physician: Dr. Rashard Berry Code status: Full code however he states he would not want a tracheostomy or G-tube. Surrogate decision maker: Morena () Smoking packs per day: 2 Smoking
--- NOTE | 2020-12-06 16:08 | PC.NURSE ---
Customer Support Representative called Dr. Parker made aware pt brought in orders for labs to be drawn for kidney center, Pt would like labs to be drawn here while admitted Dr. Parker reports okay to get labs in Am.
--- NOTE | 2020-12-06 16:32 | PM.PNCARD ---
Progress Note: A&P Assessment and Plan (1) Elevated troponin: Code(s): R77.8 - Other specified abnormalities of plasma proteins Status: Acute Assessment and Plan: Patient has a slight elevation of troponin, fairly flat troponin profile. However he does have chest discomfort which has some elements of angina although I suspect is musculoskeletal. Because of his multiple risk factors, he needs further evaluation. Lexiscan stress test interpreted as small area of mild reversibility in the apical septal and mid anteroseptal hale EF 57% without corresponding wall motion abnormality. Possible artifact, however, given clinical circumstances, renal failure conservative management advised unless patient becomes unstable and/or with refractory symptoms. Cont ASA, atorvastatin and BP/DM control. Continue aspirin, statin, beta-medhat and supportive medical therapy. Will review 2D echocardiogram unavailable. Recommendations to follow as appropriate. (2) Acute kidney injury superimposed on chronic kidney disease: Code(s): N17.9 - Acute kidney failure, unspecified; N18.9 - Chronic kidney disease, unspecified Status: Acute Assessment and Plan: Acute on chronic kidney disease, getting IV fluids. Creatinine 3.0 this morning. Continue to monitor for improvement. (3) Orthostatic hypotension: Code(s): I95.1 - Orthostatic hypotension Status: Acute Assessment and Plan: Presented with dehydration and orthostatic hypotension thought to be due to Trulicity and his diuretics, torsemide and spironolactone. Recheck orthostatics. (4) Hypertension: Code(s): I10 - Essential (primary) hypertension Status: Acute Assessment and Plan: History of hypertension, reasonable control at the moment. Subjective Date/time seen: Date of service: 12/06/20 16:32 Follow-up for chest pain, elevated troponin Patient evaluated at bedside in the stress lab. Patient states was having more shortness of breath this morning no chest pain. Was feeling fine otherwise. No nausea. O2 sat stable. Review of Systems Review of Systems: All systems reviewed & are unremarkable except as noted in HPI and below Constitutional: Constitutional: Reports as per HPI, Reports no additional constitutional complaints, Reports lethargy and Reports weakness Eyes: Eyes: Reports as per HPI and Reports no additional eye complaints ENT: Reports as per HPI and Denies epistaxis Cardiovascular: Cardiovascular: Reports as per HPI, Denies chest pain, Denies pedal edema, Denies leg edema, Reports lightheadedness, Reports dyspnea and Reports dyspnea on exertion Respiratory: Respiratory: Reports as per HPI, Denies chest congestion, Denies hemoptysis, Reports dyspnea and Reports dyspnea on exertion Gastrointestinal: Gastrointestinal: Reports as per HPI, Denies abdominal pain and Denies hematemesis Genitourinary: Genitourinary: Reports as per HPI and Denies hematuria Musculoskeletal: Musculoskeletal: Reports as per HPI and Reports back pain Integumentary/Breasts: Skin/Breast: Reports as per HPI and Denies rash Neurologic: Reports as per HPI, Denies Abnormal speech present, Denies confusion and Reports weakness Psychiatric: Psychiatric: Reports as per HPI and Denies confusion Endocrine: Endocrine: Reports no additional endocrine complaints Hematologic/Lymphatic: Hematologic/Lymphatic: Reports no additional hematologic/lymphatic complaints Allergic/Immunologic: Allergic/Immunologic: Reports no additional allergic/immunologic complaints Exam Narrative: Exam Narrative: Morbidly obese male lying supine in bed no apparent distress Const: General: no acute distress; No confusion Orientation/consciou
[2020-12-06 16:33] LABS: Glucose Point of Care 226 (65-105)
--- NOTE | 2020-12-06 16:34 | PM.CNNEP ---
Assessment and Plan Assessment and plan (1) Acute kidney injury: Code(s): N17.9 - Acute kidney failure, unspecified Status: Acute Assessment and Plan: presumably due to volume depletion given presentation with orthostatic hypotension likely worsened by continued use of PRASHANTH-I and diuretics (torsemide + spironolactone) improvement noted with gentle IVF hydration and hold potential offending agents follow trend of repeat labs and UOP follow orthostatics (2) Chronic kidney disease, stage IV (severe): Code(s): N18.4 - Chronic kidney disease, stage 4 (severe) Status: Acute Assessment and Plan: baseline creatinine not clear (but reported at 3.14mg/dl) presumably due to hypertension, diabetes, and vascular disease patient follows with Dr. Paul Piña for CKD management per patient, he was told his kidney function was 20% when last seen by Dr. Piña trying to obtain records from PCP and primary pipeline dispatcher to verify baseline creatinine (3) Orthostatic hypotension: Code(s): I95.1 - Orthostatic hypotension Status: Resolved Assessment and Plan: slow improvement noted given history of diabetes, may also have a component of autonomic dysfunction as well (4) Hypertension: Code(s): I10 - Essential (primary) hypertension Status: Acute Assessment and Plan: reasonable control at this time follow trend of hemodynamics (5) Diabetes: Code(s): E11.9 - Type 2 diabetes mellitus without complications Status: Acute Assessment and Plan: follow accuchecks glycemic control Will continue to follow. History of Present Illness Reason for Consult Consult date: 12/06/20 Reason for consult: acute renal failure Chief Complaint Chief complaint: acute kidney injury, troponin elevation History of Present Illness Narrative: The patient is a 70-year-old male with a past medical history as outlined below who presented to [facility] Emergency room with complaints of dizziness associated with nausea and headache. Apparently, the patient believes that since taking a new medication, specifically [place], he has been having issues and problems with lightheadedness, dizziness, and associated vertigo. Furthermore, in the last several days, he has noticed himself getting more weaker and weaker due to the symptoms. He gave no other symptoms with regard to fevers or chills and reportedly he was recently tested for COVID and was negative on the assumption that he never received a call that he was positive. He also gave symptoms of rib pain as well as some shortness of breath when lying flat as well. He has not reported any worsening lower extremity edema/swelling. However, because of the persistence of the symptoms, he came to the ER for further evaluation. Workup and evaluation emergency room did demonstrate all of the above-mentioned symptoms and it was noted that he was quite orthostatic by vital signs when checked. Routine blood test demonstrated labs consistent with his known history of chronic kidney disease but his BUN and creatinine were reportedly higher than baseline (I am not entirely sure what his baseline creatinine is though ). Imaging studies were unrevealing as to a cause of his dizziness and lightheadedness but it was felt that volume depletion was playing a role given these he is on diuretic therapy as well as blood pressure medications chronically. For all these reasons and the constellation of symptoms as mentioned above, he was admitted the hospital for further evaluation and therapy. Since admission and with gentle IV fluid hydration along with holding some of his blood pressure medications and diuretics, his orthostatic hypotension seems to have improved. He overall feels better but still somewhat weak and fatigued in comparison to his baseline. Renal consultation was requested due to his acute kidney injury/acut
[2020-12-06] MEDS: INSULIN ASPART (*BKC) 100 UNITS/ML SUB-Q (17:38)
[2020-12-06] MEDS: SODIUM CHLORIDE 0.9% IV 1,000 ML 50 ML IV CONT (17:42)
--- NOTE | 2020-12-06 18:41 | PM.IMPN ---
Progress Note: A&P Assessment and Plan (1) Acute kidney injury superimposed on chronic kidney disease: Code(s): N17.9 - Acute kidney failure, unspecified; N18.9 - Chronic kidney disease, unspecified Status: Acute Assessment and Plan: Receiving fluids Cr at 3 today Renal US reviewed Renal panel in progress Appreciate Nephro note Continue to monitor Daily BMP (2) Orthostatic hypotension: Code(s): I95.1 - Orthostatic hypotension Status: Acute Assessment and Plan: Resolved Likely caused by meds Currently holding (3) Hypertension: Code(s): I10 - Essential (primary) hypertension Status: Acute Assessment and Plan: Continue home meds Holding diuretics (4) Postural dizziness with near syncope: Code(s): R42 - Dizziness and giddiness; R55 - Syncope and collapse Status: Acute Assessment and Plan: As above (5) Obstructive sleep apnea on CPAP: Code(s): G47.33 - Obstructive sleep apnea (adult) (pediatric); Z99.89 - Dependence on other enabling machines and devices Status: Acute Assessment and Plan: CPAP at night time. (6) Elevated troponin: Code(s): R77.8 - Other specified abnormalities of plasma proteins Status: Acute Assessment and Plan: Lesixcan reviewed Appreciate Cardiology note. Supportive care Medical management at the moment (7) Type 2 diabetes mellitus with hyperglycemia: Qualifiers: Diabetes mellitus intermediate manager insulin use: without intermediate manager use Qualified Code(s): E11.65 - Type 2 diabetes mellitus with hyperglycemia Code(s): E11.65 - Type 2 diabetes mellitus with hyperglycemia Status: Acute Assessment and Plan: ISS as needed Lantus + Post pandreal (8) Phimosis: Code(s): N47.1 - Phimosis Status: Acute Assessment and Plan: Follow up in the outpatient setting. Subjective Date/time seen: 12/06/20 18:41 States that he feels fine Review of Systems Review of Systems: Narrative: denies any issues at this time All systems reviewed & are unremarkable except as noted in HPI and below (hpi ) Exam Narrative: Exam Narrative: Lying in bed. Const: General: no acute distress, alert and awake Nutritional Appearance: overweight Orientation/consciousness: patient oriented x3 Limitations: no limitations HENMT: Head: normocephalic Ears: hearing grossly normal bilaterally General nose exam: Normal external nose present Face and sinus: normal facial exam Eyes: General: appearance normal, both eyes and all related structures Pupils: Equal, round and reactive pupils present EOM: EOMs intact bilaterally Neck: Neck: no lymphadenopathy, supple and no JVD Resp: Effort & Inspection: able to speak in complete sentences Auscultation: clear to auscultation bilaterally Cardio: Jugular venous distension: no JVD Rate: regular rate Rhythm: regular rhythm GI: Inspection: Pannus present and obesity GI Palp: Yes Soft to palpation and Yes No hepatosplenomegaly present Skin: Rashes: no rashes Neuro: General: patient oriented x3 and CN's II-XI intact bilaterally Cranial nerves: Yes CN's II-XII intact bilaterally and Yes Equal, round and reactive pupils present Cognition (Neuro): normal cognition Speech: normal speech Motor exam (neuro): 5/5 motor strength present throughout Extrem: General: no pedal edema Objective Data Vital Signs Vital Signs: Vital Signs - 24 hr 12/05/20 21:30 12/05/20 21:36 12/05/20 21:43 Temperature 97.1 F L Pulse Rate 91 93 90 Respiratory Rate 20 Blood Pressure 142/78 H Pulse Oximetry 93 93 12/06/20 00:00 12/06/20 04:00 12/06/20 06:00 Temperature 98.6 F Pulse Rate 87 87 86 Respiratory Rate 18 Blood Pressure 147/70 H Pulse Oximetry 92 12/06/20 08:55 12/06/20 12:00 12/06/20 14:00 Temperature 97.9 F Pulse Rate 87 96 91 Respiratory Rate 24 H Blood Pressure 119/63 Pulse Oximetry 92 96 02
[2020-12-06] MEDS: TAMSULOSIN HCL 0.4 MG CAPSULE 0.8 MG PO (20:48)
[2020-12-06] MEDS: OMEGA 3 POLYUNSAT FATTY ACIDS 1 GM CAP PO (20:48)
[2020-12-06] MEDS: METOPROLOL SUCCINATE EXT REL 100 MG TABCR PO (20:48)
[2020-12-06 21:36] LABS: Glucose Point of Care 223 (65-105)
[2020-12-07] VITALS (13 sets, daily range): BP systolic 119–148; BP diastolic 57–96; PULSE 80–110; RESP 18–26; TEMP 36.1–36.5; O2SAT 92–97
[2020-12-07 06:00] LABS: Albumin Level 3.6 g/dL (3.5-5.1); Anion Gap 7 mmol/L (8-16); Blood Urea Nitrogen 28 mg/dL (9-20); Calcium 8.9 mg/dL (8.4-10.2); Carbon Dioxide 20 mmol/L (22-30); Chloride 114 mmol/L (98-107); Estimated CRCL calculation 28 ml/min; Estimated Glomerular Filt Rate 23; Glucose 172 mg/dL (75-110); Magnesium 1.9 mg/dL (1.6-2.3); Phosphorus 3.2 mg/dL (2.5-4.5); Sodium 141 mmol/L (137-145)
[2020-12-07 06:32] LABS: Creatinine Urine 61.8 mg/dL; Total Protein Urine Random 45 mg/dL; Ur Ttl Prot Creatinine Ratio 0.73 mg/mg (0-0.20)
[2020-12-07 06:49] LABS: MALB Creatinine Ratio 166.6 mg/g (0-30); Microalbumin Urine Random 101.6 mg/L (0-16.7)
[2020-12-07 07:42] LABS: Glucose Point of Care 163 (65-105)
[2020-12-07] MEDS: ASPIRIN 81 MG CHEWABLE TABLET PO (09:50)
[2020-12-07] MEDS: ATORVASTATIN 40 MG TABLET PO (09:50)
[2020-12-07] MEDS: MECLIZINE HCL 25 MG TABLET PO ×2 (09:50→17:51)
[2020-12-07] MEDS: NIFEdipine 30 MG TAB.ER.24 90 MG PO (09:51)
[2020-12-07] MEDS: ENOXAPARIN 30 MG/0.3 ML SYRINGE SUB-Q (09:51)
[2020-12-07] MEDS: FENOFIBRATE NANOCRYSTALLIZED 145 MG TABLET PO (09:51)
[2020-12-07] MEDS: FAMOTIDINE 20 MG TABLET PO ×2 (09:51→17:51)
[2020-12-07] MEDS: BETAMETHASONE/CLOTRIMAZOLE CR 15 GM TUBE 1 APPLIC TOPICAL ×2 (09:51→21:25)
--- NOTE | 2020-12-07 11:24 | PM.IMPN ---
Progress Note: A&P Assessment and Plan (1) Acute kidney injury superimposed on chronic kidney disease: Code(s): N17.9 - Acute kidney failure, unspecified; N18.9 - Chronic kidney disease, unspecified Status: Acute Assessment and Plan: Receiving fluids, hutchison out. Cr at 2.7 nephrology rounding, sp renal scan (2) Orthostatic hypotension: Code(s): I95.1 - Orthostatic hypotension Status: Resolved (3) Hypertension: Code(s): I10 - Essential (primary) hypertension Status: Acute Assessment and Plan: Continue home meds (4) Postural dizziness with near syncope: Code(s): R42 - Dizziness and giddiness; R55 - Syncope and collapse Status: Acute Assessment and Plan: As above (5) Obstructive sleep apnea on CPAP: Code(s): G47.33 - Obstructive sleep apnea (adult) (pediatric); Z99.89 - Dependence on other enabling machines and devices Status: Acute Assessment and Plan: CPAP at night time. (6) Elevated troponin: Code(s): R77.8 - Other specified abnormalities of plasma proteins Status: Acute Assessment and Plan: Lexiscan reviewed Appreciate Cardiology note. Conservative management (7) Type 2 diabetes mellitus with hyperglycemia: Qualifiers: Diabetes mellitus termite inspector insulin use: without termite inspector use Qualified Code(s): E11.65 - Type 2 diabetes mellitus with hyperglycemia Code(s): E11.65 - Type 2 diabetes mellitus with hyperglycemia Status: Acute Assessment and Plan: Lantus and SSI (8) Phimosis: Code(s): N47.1 - Phimosis Status: Acute Assessment and Plan: Follow up in the outpatient setting, seen by urology. Subjective Date/time seen: 12/07/20 11:24 70 year old male with a past medical history of diabetes, hypertension, hyperlipidemia, obesity, obstructive sleep apnea, BPH and chronic kidney disease who presented to the ER with dizziness, nausea and headache. Pt seen by nephrology, cardiology and urology. Pt had Hutchison removed. Pt to had Lexiscan for elevated troponin and intermittent chest pain. Review of Systems Review of Systems: All systems reviewed & are unremarkable except as noted in HPI and below Exam Narrative: Exam Narrative: Lying in bed. Eyes: General: appearance normal, both eyes and all related structures Neck: Neck: no JVD Resp: Auscultation: clear to auscultation bilaterally Cardio: Jugular venous distension: no JVD Rate: regular rate Rhythm: regular rhythm GI: Inspection: obesity Skin: Rashes: no rashes Neuro: General: patient oriented x3 and CN's II-XI intact bilaterally Extrem: General: no pedal edema Objective Data Vital Signs Vital Signs: Vital Signs - 24 hr 12/06/20 12:00 12/06/20 14:00 12/06/20 16:00 Temperature 36.6 C Pulse Rate 96 91 94 Respiratory Rate 24 H Blood Pressure 119/63 Pulse Oximetry 96 12/06/20 20:00 12/06/20 20:48 12/06/20 22:31 Temperature 36.3 C L Pulse Rate 59 L 80 59 L Respiratory Rate 22 H Blood Pressure 104/53 L Pulse Oximetry 97 95 12/07/20 00:00 12/07/20 04:00 12/07/20 09:45 Temperature 36.5 C Pulse Rate 84 83 Respiratory Rate 22 H Blood Pressure 131/64 Pulse Oximetry 97 95 Intake/Output Intake/Output: Intake & Output 12/04/20 12/05/20 12/06/20 12/07/20 23:59 23:59 23:59 23:59 Intake Total 2810 2400 680 Output Total 50 1075 2100 1000 Balance -50 1735 300 -320 Meds/Results Medications: Active Medications Generic Name Dose Route Start Last Admin Trade Name Jtq PRN Reason Stop Dose Admin Acetaminophen 650 mg 12/05/20 17:31 Acetaminophen 325 Mg Tablet PO Q6H PRN Mild Pain (1-3) or Fever Aspirin 81 mg 12/05/20 08:00 12/07/20 09:50 Aspirin 81 Mg Chewable Tablet PO 81 mg DAILY@0800 ISSAC Administration Atorvastatin Calcium 40 mg 12/05/20 09:00 12/07/20 09:50 Atorvastatin 40 Mg Tablet PO 40 mg DAILY SC
[2020-12-07 12:11] LABS: Glucose Point of Care 213 (65-105)
--- NOTE | 2020-12-07 12:19 | PM.PNNEP ---
Progress Note: A&P Assessment and Plan (1) Acute kidney injury: Code(s): N17.9 - Acute kidney failure, unspecified Status: Acute Assessment and Plan: presumably due to volume depletion given presentation with orthostatic hypotension likely worsened by continued use of PRASHANTH-I and diuretics (torsemide + spironolactone) improvement noted with gentle IVF hydration and holding any potential offending agents follow trend of repeat labs and UOP follow orthostatics (2) Chronic kidney disease, stage IV (severe): Code(s): N18.4 - Chronic kidney disease, stage 4 (severe) Status: Acute Assessment and Plan: baseline creatinine 3.1mg/dl in October 2020 presumably due to hypertension, diabetes, and vascular disease patient follows with Dr. Paul Piña for CKD management (3) Orthostatic hypotension: Code(s): I95.1 - Orthostatic hypotension Status: Resolved Assessment and Plan: slow improvement noted given history of diabetes, may also have a component of autonomic dysfunction as well (4) Hypertension: Code(s): I10 - Essential (primary) hypertension Status: Acute Assessment and Plan: reasonable control at this time follow trend of hemodynamics (5) Diabetes: Code(s): E11.9 - Type 2 diabetes mellitus without complications Status: Acute Assessment and Plan: follow accuchecks glycemic control Will continue to follow. Subjective Date/time seen: 12/07/20 12:19 Appears to be doing reasonably well at the time of my visit; dizziness/lightheadedness appears better; no issues/events overnight or earlier this AM. Exam Narrative: Exam Narrative: General: WD/WN male in NAD Heart: normal S1 and S2; no rub Lungs: clear to auscultation Abdomen: soft, nontender, nondistended, positive bowel sounds Extremities: no cyanosis or clubbing; no edema Skin: warm and dry Objective Data Vital Signs Vital Signs: Vital Signs Temp Pulse Resp BP Pulse Ox 12/07/20 09:45 95 12/07/20 08:00 84 12/07/20 04:00 36.5 C 83 22 H 131/64 97 12/07/20 00:00 84 12/06/20 22:31 59 L 95 12/06/20 20:48 80 12/06/20 20:00 36.3 C L 59 L 22 H 104/53 L 97 12/06/20 16:00 94 12/06/20 14:00 36.6 C 91 24 H 119/63 96 Intake/Output Intake/Output: Intake & Output 12/04/20 12/05/20 12/06/20 12/07/20 23:59 23:59 23:59 23:59 Intake Total 2810 2400 680 Output Total 50 1075 2100 1000 Balance -50 1735 300 -320 Meds/Results Medications: Active Medications Generic Name Dose Route Start Last Admin Trade Name Freq PRN Reason Stop Dose Admin Acetaminophen 650 mg 12/05/20 17:31 Acetaminophen 325 Mg Tablet PO Q6H PRN Mild Pain (1-3) or Fever Aspirin 81 mg 12/05/20 08:00 12/07/20 09:50 Aspirin 81 Mg Chewable Tablet PO 81 mg DAILY@0800 ISSAC Administration Atorvastatin Calcium 40 mg 12/05/20 09:00 12/07/20 09:50 Atorvastatin 40 Mg Tablet PO 40 mg DAILY ISSAC Administration Clotrimazole 1 applic 12/07/20 09:00 12/07/20 09:51 Betamethasone/Clotrimazole Cr 15 Gm Tube TOPICAL 1 applic Q12HR ISSAC Administration Dextrose 12.5 gm 12/05/20 02:24 Dextrose 50% 25 Gm/50 Ml Syringe IV PUSH PRN PRN Hypoglycemia Protocol Docusate Sodium 100 mg 12/05/20 18:16 Docusate Sodium 100 Mg Capsule PO Q12HR PRN Constipation Enoxaparin Sodium 30 mg 12/05/20 09:00 12/07/20 09:51 Enoxaparin 30 Mg/0.3 Ml Syringe SUB-Q 30 mg DAILY ISSAC Administration Famotidine 20 mg 12/05/20 09:00 12/07/20 09:51 Famotidine 20 Mg Tablet PO 20 mg BID ISSAC Administration Fenofibrate 145 mg 12/05/20 09:00 12/07/20 09:51 Fenofibrate Nanocrystallized 145 Mg Tablet PO 145 mg DAILY ISSAC Administration Fish Oil 1 gm 12/05/20 21:00 12/06/20 20:48 [place] 3 Polyunsat Fatty Acids 1 Gm Cap PO 1 gm HS ISSAC Administration Gluca
[2020-12-07] MEDS: INSULIN ASPART (*BKC) 100 UNITS/ML SUB-Q (12:36)
[2020-12-07] MEDS: SODIUM CHLORIDE 0.9% IV 1,000 ML 50 ML IV CONT (16:45)
--- NOTE | 2020-12-07 16:55 | PM.PNCARD ---
Progress Note: A&P Assessment and Plan (1) Elevated troponin: Code(s): R77.8 - Other specified abnormalities of plasma proteins Status: Acute Assessment and Plan: Patient has a slight elevation of troponin, fairly flat troponin profile. However he does have chest discomfort which has some elements of angina although I suspect is musculoskeletal. Because of his multiple risk factors, he needs further evaluation. Lexiscan stress test interpreted as small area of mild reversibility in the apical septal and mid anteroseptal hale EF 57% without corresponding wall motion abnormality. Possible artifact, however, given clinical circumstances, renal failure conservative management advised unless patient becomes unstable and/or with refractory symptoms. Cont ASA, atorvastatin and BP/DM control. Continue aspirin, statin, beta-medhat and supportive medical therapy. Will review 2D echocardiogram personally reviewed no wall motion abnormalities EF 55-60%. Explained to patient's and the patient we will continue to aggressive medically manage for possibility of underlying CAD given stress test results. I do not feel the patient has suffered a myocardial infarction during this hospitalization. Furthermore, we discussed the risk versus benefit of invasive angiography and as patient is not exhibiting clear anginal symptoms and his desire to avoid risking declining kidney function and hemodialysis will continue with conservative medical management. If patient becomes hemodynamically stable and or with concerning anginal symptoms and which benefit of angiography outweighs risk will reconsider at that time. Patient and verbalized understanding and agreed with plan of care. Furthermore, discussed how his stress test did not indicate an area of prior myocardial infarction but small reversible defect suggestive of underlying obstructive CAD. however, given preserved LV function, small area risk would indicate a low risk abnormality and which medical therapy and observation appropriate. Patient should be followed up as an outpatient with Dr. Parra within 4 weeks post discharge. Will see pt as needed. please call with additional questions or concerns. Spent 39 minutes in the care of this patient including bedside, evaluation, family discussion, and chart review. (2) Acute kidney injury superimposed on chronic kidney disease: Code(s): N17.9 - Acute kidney failure, unspecified; N18.9 - Chronic kidney disease, unspecified Status: Acute Assessment and Plan: Acute on chronic kidney disease, getting IV fluids. Continue to monitor renal function, Slow improvement creatinine 2.7. (3) Orthostatic hypotension: Code(s): I95.1 - Orthostatic hypotension Status: Resolved Assessment and Plan: Presented with dehydration and orthostatic hypotension thought to be due to Trulicity and his diuretics, torsemide and spironolactone. Remains off diuretic therapy. (4) Hypertension: Code(s): I10 - Essential (primary) hypertension Status: Acute Assessment and Plan: BP control fair but somewhat labile. Subjective Date/time seen: Date of service:12/07/20 16:55 Follow-up for elevated troponin, chest pain, CKD at bedside. Lengthy discussion held with her discussing his current care, stress test results recommendations. Patient is sleeping then awoke during the interview. Patient complained of left-sided discomfort off and on lasting up to 2 hours random described as tiny animals making a fire, warmth in his chest no heaviness or pressure. No aggravating or relieving factors. Patient was quite tender left chest wall upon palpation. had multiple questions whi
[2020-12-07 17:30] LABS: Glucose Point of Care 196 (65-105)
--- NOTE | 2020-12-07 18:42 | ECG_ITS ---
Measurements Intervals [place] Rate: 108 P: 24 NC: 153 QRS: 36 QRSD: 107 T: 70 QT: 350 QTc: 469 Interpretive Statements SINUS TACHYCARDIA NONSPECIFIC ST & T-WAVE ABNORMALITY- DIFFUSE LEADS BASELINE ARTIFACT- I, III, AVL, V3 ABNORMAL ECG Electronically Signed On 12-08-2020 6:47:18 [employer] by Navin Johnson D.O.
[2020-12-07 19:19] LABS: Troponin I 0.026 ng/mL (0.000-0.034)
[2020-12-07] MEDS: WATER FOR IRRIGATION, STERILE 1,000 ML BOTTLE 1000 ML (19:34)
[2020-12-07] MEDS: MAG HYDROX/AL HYDROX/SIMETH 30 ML UDC PO (21:10)
[2020-12-07] MEDS: METOPROLOL SUCCINATE EXT REL 100 MG TABCR PO (21:28)
[2020-12-07] MEDS: TAMSULOSIN HCL 0.4 MG CAPSULE 0.8 MG PO (21:28)
[2020-12-07] MEDS: OMEGA 3 POLYUNSAT FATTY ACIDS 1 GM CAP PO (21:29)
[2020-12-07 22:24] LABS: Glucose Point of Care 280 (65-105)
[2020-12-08] VITALS (8 sets, daily range): BP systolic 112–151; BP diastolic 76–87; PULSE 80–95; RESP 18–20; TEMP 36.1–37.2; O2SAT 93–98
[2020-12-08 06:55] LABS: Hematocrit 36.7 % (42.0-52.0); Hemoglobin 12.1 g/dL (14.0-18.0); Immature Platelet Fraction Pct 12.3 % (0.9-11.2); Mean Corpuscular Hemoglobin 31.4 pg (26-34); Mean Corpuscular Volume 95.3 fl (80-100); Mean Platelet Volume 12.8 fl (7.4-10.4); Platelet Count Result 141 k/mm3 (150-375); Red Blood Count 3.85 M/mm3 (4.6-6.20); Red Cell Distribution Width 13.9 % (11.5-14.5); White Blood Count 11.2 K/mm3 (4.5-10.0)
[2020-12-08 07:03] LABS: Anion Gap 10 mmol/L (8-16); Blood Urea Nitrogen 26 mg/dL (9-20); Calcium 8.8 mg/dL (8.4-10.2); Carbon Dioxide 18 mmol/L (22-30); Chloride 114 mmol/L (98-107); Estimated CRCL calculation 28 ml/min; Estimated Glomerular Filt Rate 23; Glucose 260 mg/dL (75-110); Sodium 142 mmol/L (137-145)
[2020-12-08 08:50] LABS: Glucose Point of Care 228 (65-105)
[2020-12-08] MEDS: ASPIRIN 81 MG CHEWABLE TABLET PO (08:50)
[2020-12-08] MEDS: MECLIZINE HCL 25 MG TABLET PO ×2 (08:50→17:10)
[2020-12-08] MEDS: ATORVASTATIN 40 MG TABLET PO (08:51)
[2020-12-08] MEDS: FAMOTIDINE 20 MG TABLET PO ×2 (08:51→17:10)
[2020-12-08] MEDS: INSULIN ASPART (*BKC) 100 UNITS/ML SUB-Q ×3 (08:51→17:10)
[2020-12-08] MEDS: FENOFIBRATE NANOCRYSTALLIZED 145 MG TABLET PO (08:51)
[2020-12-08] MEDS: BETAMETHASONE/CLOTRIMAZOLE CR 15 GM TUBE 1 APPLIC TOPICAL ×2 (08:51→21:11)
[2020-12-08] MEDS: ENOXAPARIN 30 MG/0.3 ML SYRINGE SUB-Q (08:51)
[2020-12-08] MEDS: NIFEdipine 30 MG TAB.ER.24 90 MG PO (08:51)
[2020-12-08] MEDS: SODIUM CHLORIDE 0.9% IV 1,000 ML 50 ML IV CONT (08:54)
--- NOTE | 2020-12-08 10:11 | PHAR ---
HOME MED VERIFIED [facility] RX [id number] TRULICITY 0.75MG/0.5 ML WEEKLY
--- NOTE | 2020-12-08 11:40 | PCOTNOTE ---
Attempted to see Patient at this time. Patient complaining of severe dizziness, and stated he attempted PT and got very weak and dizzy and had to be returned to the bed for safety. Patients present and encouraged Patient to try this afternoon. Will check back this P.M.
--- NOTE | 2020-12-08 11:49 | PM.PNNEP ---
Progress Note: A&P Assessment and Plan (1) Acute kidney injury: Code(s): N17.9 - Acute kidney failure, unspecified Status: Acute Assessment and Plan: presumably due to volume depletion given presentation with orthostatic hypotension likely worsened by continued use of PRASHANTH-I and diuretics (torsemide + spironolactone) improvement noted with gentle IVF hydration and holding any potential offending agents follow trend of repeat labs and UOP follow orthostatics (2) Chronic kidney disease, stage IV (severe): Code(s): N18.4 - Chronic kidney disease, stage 4 (severe) Status: Acute Assessment and Plan: baseline creatinine 3.1mg/dl in October 2020 - hence, creatinine currently better than baseline - however, this improvement is partly related to holding diuretics and PRASHANTH-I (which will need to be restarted on discharge if not sooner) presumably due to hypertension, diabetes, and vascular disease patient follows with Dr. Paul Piña for CKD management (3) Orthostatic hypotension: Code(s): I95.1 - Orthostatic hypotension Status: Resolved Assessment and Plan: slow improvement noted given history of diabetes, may also have a component of autonomic dysfunction as well (4) Hypertension: Code(s): I10 - Essential (primary) hypertension Status: Acute Assessment and Plan: reasonable control at this time follow trend of hemodynamics (5) Diabetes: Code(s): E11.9 - Type 2 diabetes mellitus without complications Status: Acute Assessment and Plan: follow accuchecks glycemic control Will continue to follow. Subjective Date/time seen: 12/08/20 11:49 Appears to be doing reasonably well at the time of my visit; still feels weak but has improved since admission; no events/issues overnight or earlier this AM; no apparent distress to report; concern for possible pneumonia so cultures done and instituted on antibiotics. Exam Narrative: Exam Narrative: General: WD/WN male in NAD Heart: normal S1 and S2; no rub Lungs: clear to auscultation Abdomen: soft, nontender, nondistended, positive bowel sounds Extremities: no cyanosis or clubbing; no edema Skin: warm and intact Objective Data Vital Signs Vital Signs: Vital Signs Temp Pulse Resp BP Pulse Ox 12/08/20 10:15 93 12/08/20 09:55 96 12/08/20 08:45 94 12/08/20 05:45 36.4 C 91 18 112/84 93 12/08/20 02:15 95 96 12/07/20 21:50 103 H 96 12/07/20 21:31 36.4 C 109 H 18 136/96 H 96 12/07/20 21:28 96 12/07/20 20:00 96 12/07/20 19:00 95 Intake/Output Intake/Output: Intake & Output 12/05/20 12/06/20 12/07/20 12/08/20 23:59 23:59 23:59 23:59 Intake Total 2810 2400 2640 1320 Output Total 1075 2100 1800 950 Balance 1735 300 840 370 Meds/Results Medications: Active Medications Generic Name Dose Route Start Last Admin Trade Name Freq PRN Reason Stop Dose Admin Acetaminophen 650 mg 12/05/20 17:31 Acetaminophen 325 Mg Tablet PO Q6H PRN Mild Pain (1-3) or Fever Aspirin 81 mg 12/05/20 08:00 12/08/20 08:50 Aspirin 81 Mg Chewable Tablet PO 81 mg DAILY@0800 ISSAC Administration Atorvastatin Calcium 40 mg 12/05/20 09:00 12/08/20 08:51 Atorvastatin 40 Mg Tablet PO 40 mg DAILY ISSAC Administration Clotrimazole 1 applic 12/07/20 09:00 12/08/20 08:51 Betamethasone/Clotrimazole Cr 15 Gm Tube TOPICAL 1 applic Q12HR ISSAC Administration Dextrose 12.5 gm 12/05/20 02:24 Dextrose 50% 25 Gm/50 Ml Syringe IV PUSH PRN PRN Hypoglycemia Protocol Docusate Sodium 100 mg 12/05/20 18:16 Docusate Sodium 100 Mg Capsule PO Q12HR PRN Constipation Enoxaparin Sodium 30 mg 12/05/20 09:00 12/08/20 08:51 Enoxaparin 30 Mg/0.3 Ml Syringe SUB-Q 30 mg DAILY ISSAC Administration Famotidine 20 mg 12/05/20 09:00 12/08
[2020-12-08 12:23] LABS: Glucose Point of Care 256 (65-105)
--- NOTE | 2020-12-08 13:15 | PM.IMPN ---
Progress Note: A&P Assessment and Plan (1) Acute kidney injury superimposed on chronic kidney disease: Code(s): N17.9 - Acute kidney failure, unspecified; N18.9 - Chronic kidney disease, unspecified Status: Acute Assessment and Plan: Receiving fluids, hutchison out. Cr at 2.7 nephrology rounding, sp renal scan (2) Orthostatic hypotension: Code(s): I95.1 - Orthostatic hypotension Status: Resolved Assessment and Plan: On iv fluids (3) Hypertension: Code(s): I10 - Essential (primary) hypertension Status: Acute Assessment and Plan: Continue home meds (4) Postural dizziness with near syncope: Code(s): R42 - Dizziness and giddiness; R55 - Syncope and collapse Status: Acute Assessment and Plan: As above (5) Obstructive sleep apnea on CPAP: Code(s): G47.33 - Obstructive sleep apnea (adult) (pediatric); Z99.89 - Dependence on other enabling machines and devices Status: Acute Assessment and Plan: CPAP at night time. (6) Elevated troponin: Code(s): R77.8 - Other specified abnormalities of plasma proteins Status: Acute Assessment and Plan: Lexiscan reviewed Appreciate Cardiology note. Conservative management (7) Type 2 diabetes mellitus with hyperglycemia: Qualifiers: Diabetes mellitus intermodal dispatcher insulin use: without intermodal dispatcher use Qualified Code(s): E11.65 - Type 2 diabetes mellitus with hyperglycemia Code(s): E11.65 - Type 2 diabetes mellitus with hyperglycemia Status: Acute Assessment and Plan: Lantus and SSI (8) Phimosis: Code(s): N47.1 - Phimosis Status: Acute Assessment and Plan: Follow up in the outpatient setting, seen by urology. (9) CAP (community acquired pneumonia): Code(s): J18.9 - Pneumonia, unspecified organism Status: Acute Assessment and Plan: Possible pneumonia on CXR i will order BC and IV ABX. Subjective Date/time seen: 12/08/20 13:15 Review of Systems Review of Systems: All systems reviewed & are unremarkable except as noted in HPI and below Exam Narrative: Exam Narrative: Lying in bed. Pt is Sob at rest. Neck: Neck: no JVD Chest: Breast/axilla inspection: Other (Decreased Breath sounds ) Cardio: Jugular venous distension: no JVD Rate: regular rate Rhythm: regular rhythm GI: Inspection: obesity Neuro: General: patient oriented x3 and CN's II-XI intact bilaterally Extrem: General: no pedal edema Objective Data Vital Signs Vital Signs: Vital Signs - 24 hr 12/07/20 14:00 12/07/20 18:00 12/07/20 19:00 Temperature 36.1 C L 36.4 C L Pulse Rate 89 110 H Respiratory Rate 26 H 20 Blood Pressure 148/79 H 119/57 L Pulse Oximetry 94 92 95 12/07/20 20:00 12/07/20 21:28 12/07/20 21:31 Temperature 36.4 C Pulse Rate 96 109 H Respiratory Rate 18 Blood Pressure 136/96 H Pulse Oximetry 96 96 12/07/20 21:50 12/08/20 02:15 12/08/20 05:45 Temperature 36.4 C Pulse Rate 103 H 95 91 Respiratory Rate 18 Blood Pressure 112/84 Pulse Oximetry 96 96 93 12/08/20 08:45 12/08/20 09:55 12/08/20 10:15 Temperature Pulse Rate Respiratory Rate Blood Pressure Pulse Oximetry 94 96 93 Intake/Output Intake/Output: Intake & Output 12/05/20 12/06/20 12/07/20 12/08/20 23:59 23:59 23:59 23:59 Intake Total 2810 2400 2640 1200 Output Total 1075 2100 1800 400 Balance 1735 300 840 800 Meds/Results Medications: Active Medications Generic Name Dose Route Start Last Admin Trade Name Freq PRN Reason Stop Dose Admin Acetaminophen 650 mg 12/05/20 17:31 Acetaminophen 325 Mg Tablet PO Q6H PRN Mild Pain (1-3) or Fever Aspirin 81 mg 12/05/20 08:00 12/08/20 08:50 Aspirin 81 Mg Chewable Tablet PO 81 mg DAILY@0800 ISSAC Administration Atorvastatin Calcium 40 mg 12/05/20 09:00 12/08/20 08:51 Atorvastatin 40 Mg Tablet PO 40 mg DAILY
--- NOTE | 2020-12-08 15:41 | PCOTNOTE ---
pt. unable to participate this PM due to increased dizziness.
[2020-12-08 17:13] LABS: Glucose Point of Care 252 (65-105)
[2020-12-08] MEDS: OMEGA 3 POLYUNSAT FATTY ACIDS 1 GM CAP PO (21:11)
[2020-12-08] MEDS: TAMSULOSIN HCL 0.4 MG CAPSULE 0.8 MG PO (21:11)
[2020-12-08] MEDS: METOPROLOL SUCCINATE EXT REL 100 MG TABCR PO (21:12)
[2020-12-08 22:19] LABS: Glucose Point of Care 197 (65-105)
[2020-12-09 05:12] VITALS: BP 123/86; PULSE 80; RESP 16; TEMP 36.6; O2SAT 96
[2020-12-09 05:27] LABS: Hematocrit 37.5 % (42.0-52.0); Hemoglobin 12.2 g/dL (14.0-18.0); Mean Corpuscular HGB Conc 32.5 g/dl (32-36); Mean Corpuscular Hemoglobin 31.2 pg (26-34); Mean Corpuscular Volume 95.9 fl (80-100); Mean Platelet Volume 12.7 fl (7.4-10.4); Platelet Count Result 159 k/mm3 (150-375); Red Blood Count 3.91 M/mm3 (4.6-6.20); Red Cell Distribution Width 14.1 % (11.5-14.5); White Blood Count 13.2 K/mm3 (4.5-10.0)
[2020-12-09 05:52] LABS: Anion Gap 6 mmol/L (8-16); Blood Urea Nitrogen 29 mg/dL (9-20); Calcium 8.7 mg/dL (8.4-10.2); Carbon Dioxide 21 mmol/L (22-30); Chloride 115 mmol/L (98-107); Estimated CRCL calculation 29 ml/min; Estimated Glomerular Filt Rate 25; Glucose 195 mg/dL (75-110); Potassium 4.6 mmol/L (3.4-5.0); Sodium 142 mmol/L (137-145)
[2020-12-09 08:35] LABS: Glucose Point of Care 198 (65-105)
[2020-12-09] MEDS: ASPIRIN 81 MG CHEWABLE TABLET PO (09:00)
[2020-12-09] MEDS: ENOXAPARIN 30 MG/0.3 ML SYRINGE SUB-Q (09:01)
[2020-12-09] MEDS: BETAMETHASONE/CLOTRIMAZOLE CR 15 GM TUBE 1 APPLIC TOPICAL ×2 (09:01→21:17)
[2020-12-09] MEDS: ATORVASTATIN 40 MG TABLET PO (09:01)
[2020-12-09] MEDS: MECLIZINE HCL 25 MG TABLET PO ×2 (09:01→17:41)
[2020-12-09] MEDS: FAMOTIDINE 20 MG TABLET PO ×2 (09:01→17:41)
[2020-12-09] MEDS: FENOFIBRATE NANOCRYSTALLIZED 145 MG TABLET PO (09:01)
[2020-12-09] MEDS: NIFEdipine 30 MG TAB.ER.24 90 MG PO (09:02)
--- NOTE | 2020-12-09 09:38 | PM.IMPN ---
Progress Note: A&P Assessment and Plan (1) Acute kidney injury superimposed on chronic kidney disease: Code(s): N17.9 - Acute kidney failure, unspecified; N18.9 - Chronic kidney disease, unspecified Status: Acute Assessment and Plan: Fluids stopped. Cr at 2.6. [place]ll[place] out. Pt seen by nephrology,Pt is back to baseline. (2) Orthostatic hypotension: Code(s): I95.1 - Orthostatic hypotension Status: Resolved Assessment and Plan: Continue to check orthostatic iv fluids stopped (3) Hypertension: Code(s): I10 - Essential (primary) hypertension Status: Acute Assessment and Plan: Continue home meds (4) Postural dizziness with near syncope: Code(s): R42 - Dizziness and giddiness; R55 - Syncope and collapse Status: Resolved Assessment and Plan: As above (5) Obstructive sleep apnea on CPAP: Code(s): G47.33 - Obstructive sleep apnea (adult) (pediatric); Z99.89 - Dependence on other enabling machines and devices Status: Acute Assessment and Plan: CPAP at night time. (6) Elevated troponin: Code(s): R77.8 - Other specified abnormalities of plasma proteins Status: Acute Assessment and Plan: Lexiscan reviewed Appreciate Cardiology note. Conservative management (7) Type 2 diabetes mellitus with hyperglycemia: Qualifiers: Diabetes mellitus lobsterman insulin use: without lobsterman use Qualified Code(s): E11.65 - Type 2 diabetes mellitus with hyperglycemia Code(s): E11.65 - Type 2 diabetes mellitus with hyperglycemia Status: Acute Assessment and Plan: Lantus and SSI (8) Phimosis: Code(s): N47.1 - Phimosis Status: Acute Assessment and Plan: Follow up in the outpatient setting, seen by urology. (9) CAP (community acquired pneumonia): Code(s): J18.9 - Pneumonia, unspecified organism Status: Acute Assessment and Plan: Pneumonia on CXR i will order BC and IV ABX. Subjective Date/time seen: 12/09/20 09:38 Interval history: 70 year old male with a past medical history of diabetes, hypertension, hyperlipidemia, obesity, obstructive sleep apnea, BPH and chronic kidney disease who presented to the ER with dizziness, nausea and headache. Pt seen by nephrology, cardiology and urology. Pt had [place] removed. Pt to had Lexiscan for elevated troponin and intermittent chest pain. Pt had cxr which shows pneumonia pt started on IV abx, feels better today. Review of Systems Review of Systems: All systems reviewed & are unremarkable except as noted in HPI and below Exam Narrative: Exam Narrative: Pt is Sob at rest. Const: Orientation/consciousness: patient oriented x3 Eyes: General: appearance normal, both eyes and all related structures Neck: Neck: no JVD Chest: Breast/axilla inspection: Other (Decreased Breath sounds ) Resp: Auscultation: clear to auscultation bilaterally Cardio: Jugular venous distension: no JVD Rate: regular rate Rhythm: regular rhythm GI: Inspection: obesity Skin: Rashes: no rashes Neuro: General: patient oriented x3 and CN's II-XI intact bilaterally Extrem: General: no pedal edema Objective Data Vital Signs Vital Signs: Vital Signs - 24 hr 12/08/20 09:55 12/08/20 10:15 12/08/20 14:00 Temperature 36.1 C L Pulse Rate 88 Respiratory Rate 20 Blood Pressure 117/76 Pulse Oximetry 96 93 93 12/08/20 21:12 12/08/20 22:00 12/09/20 05:12 Temperature 37.2 C 36.6 C Pulse Rate 80 91 80 Respiratory Rate 18 16 Blood Pressure 151/87 H 123/86 Pulse Oximetry 98 96 Intake/Output Intake/Output: Intake & Output 12/06/20 12/07/20 12/08/20 12/09/20 23:59 23:59 23:59 23:59 Intake Total 2400 2640 1440 200 Output Total 2100 1800 950 300 Balance 300 840 490 -100 Meds/Results Medications: Active Medications Generic Name Dose Route Start Last Admin Trade Name Freq PRN Reason Stop Dose Admin A
[2020-12-09 11:59] LABS: Glucose Point of Care 255 (65-105)
[2020-12-09] MEDS: INSULIN ASPART (*BKC) 100 UNITS/ML SUB-Q ×2 (12:05→17:42)
--- NOTE | 2020-12-09 13:27 | P.PNNP_ITS ---
Progress Note: A&P Assessment and Plan (1) Acute kidney injury: Code(s): N17.9 - Acute kidney failure, unspecified Status: Acute Assessment and Plan: * presumably due to volume depletion given presentation with orthostatic hypotension * likely worsened by continued use of PRASHANTH-I and diuretics (torsemide + spiron olactone) * improvement noted s/p IVF hydration and holding any potential offending agents * follow trend of repeat labs and UOP * follow orthostatics (2) Chronic kidney disease, stage IV (severe): Code(s): N18.4 - Chronic kidney disease, stage 4 (severe) Status: Acute Assessment and Plan: * baseline creatinine 3.1mg/dl in October 2020 - hence, creatinine currently better than baseline - however, this improvement is partly related to holding diuretics and PRASHANTH-I (which will need to be restarted on discharge) * presumably due to hypertension, diabetes, and vascular disease * patient follows with Dr. Paul Piña for CKD management (3) Orthostatic hypotension: Code(s): I95.1 - Orthostatic hypotension Status: Resolved Assessment and Plan: * better if not resolved * given history of diabetes, may also have a component of autonomic dysfunction as well (4) CAP (community acquired pneumonia): Code(s): J18.9 - Pneumonia, unspecified organism Status: Acute Assessment and Plan: * as noted by CXR * follow cultures * on antibiotics (5) Hypertension: Code(s): I10 - Essential (primary) hypertension Status: Acute Assessment and Plan: * reasonable control at this time * follow trend of hemodynamics (6) Diabetes: Code(s): E11.9 - Type 2 diabetes mellitus without complications Status: Acute Assessment and Plan: * follow accuchecks * glycemic control Will continue to follow. Subjective Date/time seen: 12/09/20 13:27 Overall, he states he feels reasonably well today; no new issues or problems expressed at the time of my visit; no new issues/events overnight or earlier this AM. Exam 2 Narrative: Exam Narrative: General: WD/WN male in NAD Heart: normal S1 and S2; no rub Lungs: clear to auscultation Abdomen: soft, nontender, nondistended, positive bowel sounds Extremities: no cyanosis or clubbing; no edema Skin: no rash Objective Data Vital Signs Vital Signs: Vital Signs Temp Pulse Resp BP Pulse Ox 12/09/20 05:12 36.6 C 80 16 123/86 96 12/08/20 22:00 37.2 C 91 18 151/87 H 98 12/08/20 21:12 80 Intake/Output Intake/Output: Intake & Output 12/06/20 12/07/20 12/08/20 12/09/20 23:59 23:59 23:59 23:59 Intake Total 2400 2640 1440 560 Output Total 2100 1800 950 700 Balance 300 840 490 -140 Meds/Results Medications: Active Medications Generic Name Dose Route Start Last Admin Trade Name Freq PRN Reason Stop Dose Admin Acetaminophen 650 mg 12/05/20 17:31 Acetaminophen 325 Mg Tablet PO Q6H PRN Mild Pain (1-3) or Fever Aspirin 81 mg 12/05/20 08:00 12/09/20 09:00 Aspirin 81 Mg Chewable Tablet PO 81 mg DAILY@0800 ISSAC Administration Atorvastatin Calcium 40 mg 12/05/20 09:00 12/09/20 09:01 Atorvastatin 40 Mg Tablet PO 4
--- NOTE | 2020-12-09 13:27 | PM.PNNEP ---
Progress Note: A&P Assessment and Plan (1) Acute kidney injury: Code(s): N17.9 - Acute kidney failure, unspecified Status: Acute Assessment and Plan: presumably due to volume depletion given presentation with orthostatic hypotension likely worsened by continued use of PRASHANTH-I and diuretics (torsemide + spironolactone) improvement noted s/p IVF hydration and holding any potential offending agents follow trend of repeat labs and UOP follow orthostatics (2) Chronic kidney disease, stage IV (severe): Code(s): N18.4 - Chronic kidney disease, stage 4 (severe) Status: Acute Assessment and Plan: baseline creatinine 3.1mg/dl in October 2020 - hence, creatinine currently better than baseline - however, this improvement is partly related to holding diuretics and PRASHANTH-I (which will need to be restarted on discharge) presumably due to hypertension, diabetes, and vascular disease patient follows with Dr. Paul Piña for CKD management (3) Orthostatic hypotension: Code(s): I95.1 - Orthostatic hypotension Status: Resolved Assessment and Plan: better if not resolved given history of diabetes, may also have a component of autonomic dysfunction as well (4) CAP (community acquired pneumonia): Code(s): J18.9 - Pneumonia, unspecified organism Status: Acute Assessment and Plan: as noted by CXR follow cultures on antibiotics (5) Hypertension: Code(s): I10 - Essential (primary) hypertension Status: Acute Assessment and Plan: reasonable control at this time follow trend of hemodynamics (6) Diabetes: Code(s): E11.9 - Type 2 diabetes mellitus without complications Status: Acute Assessment and Plan: follow accuchecks glycemic control Will continue to follow. Subjective Date/time seen: 12/09/20 13:27 Overall, he states he feels reasonably well today; no new issues or problems expressed at the time of my visit; no new issues/events overnight or earlier this AM. Exam Narrative: Exam Narrative: General: WD/WN male in NAD Heart: normal S1 and S2; no rub Lungs: clear to auscultation Abdomen: soft, nontender, nondistended, positive bowel sounds Extremities: no cyanosis or clubbing; no edema Skin: no rash Objective Data Vital Signs Vital Signs: Vital Signs Temp Pulse Resp BP Pulse Ox 12/09/20 05:12 36.6 C 80 16 123/86 96 02/24/21 22:00 37.2 C 91 18 151/87 H 98 12/08/20 21:12 80 Intake/Output Intake/Output: Intake & Output 12/06/20 12/07/20 12/08/20 12/09/20 23:59 23:59 23:59 23:59 Intake Total 2400 2640 1440 560 Output Total 2100 1800 950 700 Balance 300 840 490 -140 Meds/Results Medications: Active Medications Generic Name Dose Route Start Last Admin Trade Name Freq PRN Reason Stop Dose Admin Acetaminophen 650 mg 12/05/20 17:31 Acetaminophen 325 Mg Tablet PO Q6H PRN Mild Pain (1-3) or Fever Aspirin 81 mg 12/05/20 08:00 12/09/20 09:00 Aspirin 81 Mg Chewable Tablet PO 81 mg DAILY@0800 ISSAC Administration Atorvastatin Calcium 40 mg 12/05/20 09:00 12/09/20 09:01 Atorvastatin 40 Mg Tablet PO 40 mg DAILY ISSAC Administration Clotrimazole 1 applic 12/07/20 09:00 12/09/20 09:01 Betamethasone/Clotrimazole Cr 15 Gm Tube TOPICAL 1 applic Q12HR ISSAC Administration Dextrose 12.5 gm 12/05/20 02:24 Dextrose 50% 25 Gm/50 Ml Syringe IV PUSH PRN PRN Hypoglycemia Protocol Docusate Sodium 100 mg 12/05/20 18:16 Docusate Sodium 100 Mg Capsule PO Q12HR PRN Constipation Enoxaparin Sodium 30 mg 12/05/20 09:00 12/09/20 09:01 Enoxaparin 30 Mg/0.3 Ml Syringe SUB-Q 30 mg DAILY ISSAC Administration Famotidine 20 mg 12/05/20 09:00 12/09/20 17:41 Famotidine 20 Mg Tablet PO 20 mg BID ISSAC Administration Fenofibrate 145 mg 12/05/20 09:00 12/09/20
[2020-12-09 13:57] VITALS: BP 118/70; BP 118/76; BP 128/78
[2020-12-09 14:00] VITALS: BP 135/82; PULSE 81; RESP 22; TEMP 35.8; O2SAT 97
[2020-12-09 17:35] LABS: Glucose Point of Care 221 (65-105)
[2020-12-09 20:00] VITALS: BP 99/65; PULSE 86; PULSE 87; RESP 24; TEMP 36.4; O2SAT 97
[2020-12-09 21:16] VITALS: PULSE 86
[2020-12-09] MEDS: METOPROLOL SUCCINATE EXT REL 100 MG TABCR PO (21:16)
[2020-12-09] MEDS: TAMSULOSIN HCL 0.4 MG CAPSULE 0.8 MG PO (21:16)
[2020-12-09] MEDS: OMEGA 3 POLYUNSAT FATTY ACIDS 1 GM CAP PO (21:16)
[2020-12-09 22:41] LABS: Glucose Point of Care 239 (65-105)
[2020-12-09 22:45] VITALS: PULSE 82; O2SAT 97
[2020-12-10] VITALS (10 sets, daily range): BP systolic 116–152; BP diastolic 60–83; PULSE 65–83; RESP 18–20; TEMP 36.1–36.2; O2SAT 96–100
[2020-12-10 08:44] LABS: Glucose Point of Care 194 (65-105)
[2020-12-10] MEDS: ASPIRIN 81 MG CHEWABLE TABLET PO (08:44)
[2020-12-10] MEDS: FAMOTIDINE 20 MG TABLET PO ×2 (08:44→16:30)
[2020-12-10] MEDS: ENOXAPARIN 30 MG/0.3 ML SYRINGE SUB-Q (08:44)
[2020-12-10] MEDS: BETAMETHASONE/CLOTRIMAZOLE CR 15 GM TUBE 1 APPLIC TOPICAL ×2 (08:44→20:26)
[2020-12-10] MEDS: MECLIZINE HCL 25 MG TABLET PO ×2 (08:44→16:31)
[2020-12-10] MEDS: FENOFIBRATE NANOCRYSTALLIZED 145 MG TABLET PO (08:44)
[2020-12-10] MEDS: NIFEdipine 30 MG TAB.ER.24 90 MG PO (08:44)
[2020-12-10] MEDS: ATORVASTATIN 40 MG TABLET PO (08:45)
--- NOTE | 2020-12-10 09:56 | PM.IMPN ---
Progress Note: A&P Assessment and Plan (1) Acute kidney injury superimposed on chronic kidney disease: Code(s): N17.9 - Acute kidney failure, unspecified; N18.9 - Chronic kidney disease, unspecified Status: Acute Assessment and Plan: Fluids stopped. Cr at 2.6. Ulloa out. Pt seen by nephrology,Pt is back to baseline. (2) Orthostatic hypotension: Code(s): I95.1 - Orthostatic hypotension Status: Resolved Assessment and Plan: Continue to check orthostatic iv fluids stopped (3) Hypertension: Code(s): I10 - Essential (primary) hypertension Status: Acute Assessment and Plan: Continue home meds (4) Postural dizziness with near syncope: Code(s): R42 - Dizziness and giddiness; R55 - Syncope and collapse Status: Resolved Assessment and Plan: As above (5) Obstructive sleep apnea on CPAP: Code(s): G47.33 - Obstructive sleep apnea (adult) (pediatric); Z99.89 - Dependence on other enabling machines and devices Status: Acute Assessment and Plan: CPAP at night time. (6) Elevated troponin: Code(s): R77.8 - Other specified abnormalities of plasma proteins Status: Acute Assessment and Plan: Lexiscan reviewed Appreciate Cardiology note. Conservative management (7) Type 2 diabetes mellitus with hyperglycemia: Qualifiers: Diabetes mellitus half-way insulin use: without exterminator use Qualified Code(s): E11.65 - Type 2 diabetes mellitus with hyperglycemia Code(s): E11.65 - Type 2 diabetes mellitus with hyperglycemia Status: Acute Assessment and Plan: Lantus and SSI (8) Phimosis: Code(s): N47.1 - Phimosis Status: Acute Assessment and Plan: Follow up in the outpatient setting, seen by urology. (9) CAP (community acquired pneumonia): Code(s): J18.9 - Pneumonia, unspecified organism Status: Acute Assessment and Plan: Pneumonia on CXR i will order BC and IV [place]. [facility] [place] [id number] Subjective Date/time seen: 12/10/20 09:56 Interval history: 70 year old male with a past medical history of diabetes, hypertension, hyperlipidemia, obesity, obstructive sleep apnea, BPH and chronic kidney disease who presented to the ER with dizziness, nausea and headache. Pt seen by nephrology, cardiology and urology. Pt had Ulloa removed. Pt to had Lexiscan for elevated troponin and intermittent chest pain. Pt had cxr which shows pneumonia pt started on IV abx. Pt denies SOB or chest pain today, complains of dizziness when sitting up or turning his head. pt is weak in his legs and is due to go to Rehab today. Urgent consult made to ENT. Pt having lying and sitting orthostatics today as he is unable to state due to acute dizziness. Review of Systems Review of Systems: All systems reviewed & are unremarkable except as noted in HPI and below Exam Narrative: Exam Narrative: Pt feels dizzy on turning his head Const: Nutritional Appearance: overweight Orientation/consciousness: patient oriented x3 HENMT: General nose exam: Normal external nose present Face and sinus: normal facial exam Eyes: General: appearance normal, both eyes and all related structures Pupils: Equal, round and reactive pupils present EOM: EOMs intact bilaterally Neck: Neck: no lymphadenopathy, supple and no JVD Chest: Breast/axilla inspection: Other (Decreased Breath sounds ) Resp: Effort & Inspection: able to speak in complete sentences Auscultation: clear to auscultation bilaterally Cardio: Jugular venous distension: no JVD Rate: regular rate Rhythm: regular rhythm GI: Inspection: distended, Pannus present and obesity Skin: Rashes: no rashes Neuro: General: patient oriented x3 and CN's II-XI intact bilaterally Cranial nerves: Yes CN's II-XII intact bilaterally, Yes Equal, round and reactive pupils present and Yes Bilaterally intact EOM present Cognition (Neuro): normal cognition Speech: norm
--- NOTE | 2020-12-10 10:05 | P.PNNP_ITS ---
Progress Note: A&P Assessment and Plan (1) Acute kidney injury: Code(s): N17.9 - Acute kidney failure, unspecified Status: Acute Assessment and Plan: * presumably due to volume depletion given presentation with orthostatic hypotension * likely worsened by continued use of PRASHNATH-I and diuretics (torsemide + spiron olactone) * improvement noted s/p IVF hydration and holding any potential offending agents * follow trend of repeat labs and UOP (2) Chronic kidney disease, stage IV (severe): Code(s): N18.4 - Chronic kidney disease, stage 4 (severe) Status: Acute Assessment and Plan: * baseline creatinine 3.1mg/dl in October 2020 - hence, creatinine currently better than baseline - however, this improvement is partly related to holding diuretics and PRASHANTH-I (which will need to be restarted likely on discharge) * presumably due to hypertension, diabetes, and vascular disease * patient follows with Dr. Paul Piña for CKD management (3) Orthostatic hypotension: Code(s): I95.1 - Orthostatic hypotension Status: Resolved Assessment and Plan: * better if not resolved * however, acute dizziness noted this AM -- will recheck orthostatics * * given history of diabetes, may also have a component of autonomic dysfunction as well (4) CAP (community acquired pneumonia): Code(s): J18.9 - Pneumonia, unspecified organism Status: Acute Assessment and Plan: * as noted by CXR * follow cultures * on antibiotics (5) Hypertension: Code(s): I10 - Essential (primary) hypertension Status: Acute Assessment and Plan: * reasonable control at this time * follow trend of hemodynamics (6) Diabetes: Code(s): E11.9 - Type 2 diabetes mellitus without complications Status: Acute Assessment and Plan: * follow accuchecks * glycemic control Will continue to follow. Subjective Date/time seen: 12/10/20 10:05 Noted issues with acute dizziness earlier this morning to the point where he cannot even stand up; no issues or events overnight; mild shortness of breath noted on my visit as well. Exam Narrative: Exam Narrative: General: WD/WN male in NAD Heart: normal S1 and S2; no rub Lungs: clear to auscultation Abdomen: soft, nontender, nondistended, positive bowel sounds Extremities: no cyanosis or clubbing; no edema Skin: warm and dry Objective Data Vital Signs Vital Signs: Vital Signs Temp Pulse Resp BP Pulse Ox 12/10/20 08:53 20 98 12/10/20 08:47 20 98 12/10/20 05:56 124/83 12/10/20 05:55 36.1 C L 73 20 118/81 100 12/09/20 22:45 82 97 12/09/20 21:16 86 12/09/20 20:00 36.4 C 86 24 H 99/65 L 97 12/09/20 14:00 35.8 C L 81 22 H 135/82 97 12/09/20 13:57 118/70 Intake/Output Intake/Output: Intake & Output 12/07/20 12/08/20 12/09/20 12/10/20 23:59 23:59 23:59 23:59 Intake Total 2640 1440 1340 150 Output Total 6679 887 3155 200 Balance 840 490 485 -50 Meds/Results Medications: Active Medications Generic Name Dose Route Start Last Admin Trade Name Janes PRN Reason Stop Dose Admin Acetaminophen 650 mg 12/05/20 17:31 Acetaminophen 325 Mg Tablet
--- NOTE | 2020-12-10 10:05 | PM.PNNEP ---
Progress Note: A&P Assessment and Plan (1) Acute kidney injury: Code(s): N17.9 - Acute kidney failure, unspecified Status: Acute Assessment and Plan: presumably due to volume depletion given presentation with orthostatic hypotension likely worsened by continued use of PRASHANTH-I and diuretics (torsemide + spironolactone) improvement noted s/p IVF hydration and holding any potential offending agents follow trend of repeat labs and UOP (2) Chronic kidney disease, stage IV (severe): Code(s): N18.4 - Chronic kidney disease, stage 4 (severe) Status: Acute Assessment and Plan: baseline creatinine 3.1mg/dl in October 2020 - hence, creatinine currently better than baseline - however, this improvement is partly related to holding diuretics and PRASHANTH-I (which will need to be restarted likely on discharge) presumably due to hypertension, diabetes, and vascular disease patient follows with Dr. Paul Piña for CKD management (3) Orthostatic hypotension: Code(s): I95.1 - Orthostatic hypotension Status: Resolved Assessment and Plan: better if not resolved however, acute dizziness noted this AM -- will recheck orthostatics given history of diabetes, may also have a component of autonomic dysfunction as well (4) CAP (community acquired pneumonia): Code(s): J18.9 - Pneumonia, unspecified organism Status: Acute Assessment and Plan: as noted by CXR follow cultures on antibiotics (5) Hypertension: Code(s): I10 - Essential (primary) hypertension Status: Acute Assessment and Plan: reasonable control at this time follow trend of hemodynamics (6) Diabetes: Code(s): E11.9 - Type 2 diabetes mellitus without complications Status: Acute Assessment and Plan: follow accuchecks glycemic control Will continue to follow. Subjective Date/time seen: 12/10/20 10:05 Noted issues with acute dizziness earlier this morning to the point where he cannot even stand up; no issues or events overnight; mild shortness of breath noted on my visit as well. Exam Narrative: Exam Narrative: General: WD/WN male in NAD Heart: normal S1 and S2; no rub Lungs: clear to auscultation Abdomen: soft, nontender, nondistended, positive bowel sounds Extremities: no cyanosis or clubbing; no edema Skin: warm and dry Objective Data Vital Signs Vital Signs: Vital Signs Temp Pulse Resp BP Pulse Ox 12/10/20 08:53 20 98 12/10/20 08:47 20 98 12/10/20 05:56 124/83 12/10/20 05:55 36.1 C L 73 20 118/81 100 12/09/20 22:45 82 97 12/09/20 21:16 86 12/09/20 20:00 36.4 C 86 24 H 99/65 L 97 12/09/20 14:00 35.8 C L 81 22 H 135/82 97 12/09/20 13:57 118/70 Intake/Output Intake/Output: Intake & Output 12/07/20 12/08/20 12/09/20 12/10/20 23:59 23:59 23:59 23:59 Intake Total 2640 1440 1340 150 Output Total 6963 040 8855 200 Balance 840 490 485 -50 Meds/Results Medications: Active Medications Generic Name Dose Route Start Last Admin Trade Name Freq PRN Reason Stop Dose Admin Acetaminophen 650 mg 12/05/20 17:31 Acetaminophen 325 Mg Tablet PO Q6H PRN Mild Pain (1-3) or Fever Aspirin 81 mg 12/05/20 08:00 12/10/20 08:44 Aspirin 81 Mg Chewable Tablet PO 81 mg DAILY@0800 ISSAC Administration Atorvastatin Calcium 40 mg 12/05/20 09:00 12/10/20 08:45 Atorvastatin 40 Mg Tablet PO 40 mg DAILY ISSAC Administration Clotrimazole 1 applic 12/07/20 09:00 12/10/20 08:44 Betamethasone/Clotrimazole Cr 15 Gm Tube TOPICAL 1 applic Q12HR ISSAC Administration Dextrose 12.5 gm 12/05/20 02:24 Dextrose 50% 25 Gm/50 Ml Syringe IV PUSH PRN PRN Hypoglycemia Protocol Docusate Sodium 100 mg 12/05/20 18:16 Docusate Sodium 100 Mg Capsule PO Q12HR PRN Constipation Enoxaparin Sodium 30 mg
[2020-12-10 12:29] LABS: Glucose Point of Care 231 (65-105)
[2020-12-10] MEDS: INSULIN ASPART (*BKC) 100 UNITS/ML SUB-Q ×2 (12:55→16:36)
[2020-12-10 16:37] LABS: Glucose Point of Care 225 (65-105)
[2020-12-10] MEDS: OMEGA 3 POLYUNSAT FATTY ACIDS 1 GM CAP PO (20:23)
[2020-12-10] MEDS: TAMSULOSIN HCL 0.4 MG CAPSULE 0.8 MG PO (20:23)
[2020-12-10] MEDS: METOPROLOL SUCCINATE EXT REL 100 MG TABCR PO (20:23)
[2020-12-10 21:14] LABS: Glucose Point of Care 145 (65-105)
[2020-12-11] VITALS (12 sets, daily range): BP systolic 104–136; BP diastolic 65–89; PULSE 74–84; RESP 18–22; TEMP 35.9–36.2; O2SAT 94–99
[2020-12-11 07:28] LABS: Glucose Point of Care 175 (65-105)
[2020-12-11] MEDS: ASPIRIN 81 MG CHEWABLE TABLET PO (08:57)
[2020-12-11] MEDS: ENOXAPARIN 30 MG/0.3 ML SYRINGE SUB-Q (08:57)
[2020-12-11] MEDS: MECLIZINE HCL 25 MG TABLET PO ×2 (08:57→16:48)
[2020-12-11] MEDS: FENOFIBRATE NANOCRYSTALLIZED 145 MG TABLET PO (08:57)
[2020-12-11] MEDS: NIFEdipine 30 MG TAB.ER.24 90 MG PO (08:57)
[2020-12-11] MEDS: BETAMETHASONE/CLOTRIMAZOLE CR 15 GM TUBE 1 APPLIC TOPICAL ×2 (08:58→20:47)
[2020-12-11] MEDS: ATORVASTATIN 40 MG TABLET PO (08:58)
[2020-12-11] MEDS: FAMOTIDINE 20 MG TABLET PO ×2 (08:58→16:48)
[2020-12-11 11:40] LABS: Glucose Point of Care 279 (65-105)
[2020-12-11] MEDS: INSULIN ASPART (*BKC) 100 UNITS/ML SUB-Q (11:57)
--- NOTE | 2020-12-11 12:34 | PM.IMPN ---
Progress Note: A&P Assessment and Plan (1) Acute kidney injury superimposed on chronic kidney disease: Code(s): N17.9 - Acute kidney failure, unspecified; N18.9 - Chronic kidney disease, unspecified Status: Acute Assessment and Plan: Fluids stopped. Cr at 2.6. Ulloa out. Pt seen by nephrology,Pt is back to baseline. (2) Orthostatic hypotension: Code(s): I95.1 - Orthostatic hypotension Status: Resolved Assessment and Plan: Continue to check orthostatic iv fluids stopped (3) Hypertension: Code(s): I10 - Essential (primary) hypertension Status: Acute Assessment and Plan: Continue home meds (4) Postural dizziness with near syncope: Code(s): R42 - Dizziness and giddiness; R55 - Syncope and collapse Status: Resolved Assessment and Plan: As above pt can follow with ENT (5) Obstructive sleep apnea on CPAP: Code(s): G47.33 - Obstructive sleep apnea (adult) (pediatric); Z99.89 - Dependence on other enabling machines and devices Status: Acute Assessment and Plan: CPAP at night time. (6) Elevated troponin: Code(s): R77.8 - Other specified abnormalities of plasma proteins Status: Acute Assessment and Plan: Lexiscan reviewed Appreciate Cardiology note. 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 (9) CAP (community acquired pneumonia): Code(s): J18.9 - Pneumonia, unspecified organism Status: Acute Assessment and Plan: Pneumonia [place] [id number], add breathing treatments today Subjective Date/time seen: 12/11/20 12:34 Interval history: 70 year old male with a past medical history of diabetes, hypertension, hyperlipidemia, obesity, obstructive sleep apnea, BPH and chronic kidney disease who presented to the ER with dizziness, nausea and headache. Pt seen by nephrology, cardiology and urology. Pt had Ulloa removed. Pt to had Lexiscan for elevated troponin and intermittent chest pain. Pt had cxr which shows pneumonia pt started on IV abx. Pt denies SOB or chest pain today, complains of dizziness when sitting up or turning his head. pt is weak in his legs and is due to go to Rehab today.Discussed with ENT pt can follow with ENT Dr Lopez as a outpatient. Pt appears very sob today able to walk 8 feet only, due to SOB. Review of Systems Review of Systems: All systems reviewed & are unremarkable except as noted in HPI and below Exam Const: General: tired appearing, uncomfortable and other (SOB on ambulation) Nutritional Appearance: overweight Orientation/consciousness: patient oriented x3 HENMT: Head: normocephalic Eyes: EOM: EOMs intact bilaterally Neck: Neck: no lymphadenopathy, supple and no JVD Chest: Breast/axilla inspection: Other (Decreased Breath sounds ) Resp: Effort & Inspection: able to speak in complete sentences Auscultation: clear to auscultation bilaterally Cardio: Jugular venous distension: no JVD Rate: regular rate Rhythm: regular rhythm GI: Inspection: distended, Pannus present and obesity Skin: Rashes: no rashes Neuro: General: patient oriented x3 and CN's II-XI intact bilaterally Cranial nerves: Yes CN's II-XII intact bilaterally, Yes Equal, round and reactive pupils present and Yes Bilaterally intact EOM present Cognition (Neuro): normal cognition Speech: normal speech Motor exam (neuro): Other motor observations present (bilateral lower ext 4/5 ) Extrem: Genera
--- NOTE | 2020-12-11 15:25 | PM.PNNEP ---
Progress Note: A&P Assessment and Plan (1) Acute kidney injury: Code(s): N17.9 - Acute kidney failure, unspecified Status: Acute Assessment and Plan: presumably due to volume depletion given presentation with orthostatic hypotension likely worsened by continued use of PRASHANTH-I and diuretics (torsemide + spironolactone) improvement noted s/p IVF hydration and holding any potential offending agents follow trend of repeat labs and UOP (2) Chronic kidney disease, stage IV (severe): Code(s): N18.4 - Chronic kidney disease, stage 4 (severe) Status: Acute Assessment and Plan: baseline creatinine 3.1mg/dl in October 2020 - hence, creatinine currently better than baseline - however, this improvement is partly related to holding diuretics and PRASHANTH-I (which will need to be restarted likely on discharge) presumably due to hypertension, diabetes, and vascular disease patient follows with Dr. Paul Piña for CKD management (3) Orthostatic hypotension: Code(s): I95.1 - Orthostatic hypotension Status: Resolved Assessment and Plan: better but seems to fluctuate given history of diabetes, may also have a component of autonomic dysfunction as well (4) CAP (community acquired pneumonia): Code(s): J18.9 - Pneumonia, unspecified organism Status: Acute Assessment and Plan: as noted by CXR follow cultures on antibiotics (5) Hypertension: Code(s): I10 - Essential (primary) hypertension Status: Acute Assessment and Plan: reasonable control at this time follow trend of hemodynamics (6) Diabetes: Code(s): E11.9 - Type 2 diabetes mellitus without complications Status: Acute Assessment and Plan: follow accuchecks glycemic control Will continue to follow. Subjective Date/time seen: 12/11/20 15:25 Overall, dizziness doing better but just feels severly weak; shortness of breath seems more prominent/evident on my visit today; no other acute issues/problems voiced at this time. Exam Narrative: Exam Narrative: General: WD/WN male in NAD Heart: normal S1 and S2; no rub Lungs: decreased at the bases Abdomen: soft, nontender, nondistended, positive bowel sounds Extremities: no cyanosis or clubbing; no edema Skin: warm and intact Objective Data Vital Signs Vital Signs: Vital Signs Temp Pulse Resp BP Pulse Ox 12/11/20 14:15 36.2 C L 74 18 127/68 97 12/11/20 09:03 18 98 12/11/20 08:10 35.9 C L 82 18 121/89 98 12/11/20 08:05 35.9 C L 79 18 121/65 99 12/11/20 08:00 36.0 C L 76 18 136/87 94 12/11/20 05:50 36.2 C L 81 20 112/69 96 12/10/20 22:55 80 98 12/10/20 21:55 36.1 C L 65 18 152/74 H 99 12/10/20 20:54 127/66 12/10/20 20:23 83 12/10/20 20:00 116/60 Intake/Output Intake/Output: Intake & Output 12/08/20 12/09/20 12/10/20 12/11/20 23:59 23:59 23:59 23:59 Intake Total 1590 1340 1635 1110 Output Total 950 1825 1325 500 Balance 640 -485 310 610 Meds/Results Medications: Active Medications Generic Name Dose Route Start Last Admin Trade Name Freq PRN Reason Stop Dose Admin Acetaminophen 650 mg 12/05/20 17:31 Acetaminophen 325 Mg Tablet PO Q6H PRN Mild Pain (1-3) or Fever Aspirin 81 mg 12/05/20 08:00 12/11/20 08:57 Aspirin 81 Mg Chewable Tablet PO 81 mg DAILY@0800 ISSAC Administration Atorvastatin Calcium 40 mg 12/05/20 09:00 12/11/20 08:58 Atorvastatin 40 Mg Tablet PO 40 mg DAILY ISSAC Administration Clotrimazole 1 applic 12/07/20 09:00 12/11/20 08:58 Betamethasone/Clotrimazole Cr 15 Gm Tube TOPICAL 1 applic Q12HR ISSAC Administration Dextrose 12.5 gm 12/05/20 02:24 Dextrose 50% 25 Gm/50 Ml Syringe IV PUSH PRN PRN Hypoglycemia Protocol Docusate Sodium 100 mg 12/05/20 18:16 Docusate Sodium 100 Mg Capsule PO Q12HR
[2020-12-11 16:53] LABS: Glucose Point of Care 169 (65-105)
[2020-12-11 20:17] LABS: Glucose Point of Care 257 (65-105)
[2020-12-11] MEDS: METOPROLOL SUCCINATE EXT REL 100 MG TABCR PO (20:48)
[2020-12-11] MEDS: OMEGA 3 POLYUNSAT FATTY ACIDS 1 GM CAP PO (20:48)
[2020-12-11] MEDS: TAMSULOSIN HCL 0.4 MG CAPSULE 0.8 MG PO (20:48)
[2020-12-12] VITALS (14 sets, daily range): BP systolic 123–168; BP diastolic 58–115; PULSE 72–87; RESP 18–22; TEMP 35.9–36.2; O2SAT 95–100
[2020-12-12 07:38] LABS: Glucose Point of Care 161 (65-105)
[2020-12-12] MEDS: ASPIRIN 81 MG CHEWABLE TABLET PO (08:19)
[2020-12-12] MEDS: FENOFIBRATE NANOCRYSTALLIZED 145 MG TABLET PO (08:19)
[2020-12-12] MEDS: MECLIZINE HCL 25 MG TABLET PO ×2 (08:19→17:17)
[2020-12-12] MEDS: FAMOTIDINE 20 MG TABLET PO ×2 (08:19→17:17)
[2020-12-12] MEDS: ENOXAPARIN 30 MG/0.3 ML SYRINGE SUB-Q (08:20)
[2020-12-12] MEDS: BETAMETHASONE/CLOTRIMAZOLE CR 15 GM TUBE 1 APPLIC TOPICAL ×2 (08:20→20:31)
[2020-12-12] MEDS: NIFEdipine 30 MG TAB.ER.24 90 MG PO (08:20)
[2020-12-12] MEDS: ATORVASTATIN 40 MG TABLET PO (08:49)
--- NOTE | 2020-12-12 11:30 | PM.IMPN ---
Progress Note: A&P Assessment and Plan (1) Acute kidney injury superimposed on chronic kidney disease: Code(s): N17.9 - Acute kidney failure, unspecified; N18.9 - Chronic kidney disease, unspecified Status: Acute Assessment and Plan: Fluids stopped. Cr at 2.6. Ulloa out. Pt seen by nephrology,Pt is back to baseline. (2) Orthostatic hypotension: Code(s): I95.1 - Orthostatic hypotension Status: Resolved Assessment and Plan: Continue to check orthostatic iv fluids stopped (3) Hypertension: Code(s): I10 - Essential (primary) hypertension Status: Acute Assessment and Plan: Continue home meds (4) Postural dizziness with near syncope: Code(s): R42 - Dizziness and giddiness; R55 - Syncope and collapse Status: Resolved Assessment and Plan: As above pt can follow with ENT (5) Obstructive sleep apnea on CPAP: Code(s): G47.33 - Obstructive sleep apnea (adult) (pediatric); Z99.89 - Dependence on other enabling machines and devices Status: Acute Assessment and Plan: CPAP at night time. (6) Elevated troponin: Code(s): R77.8 - Other specified abnormalities of plasma proteins Status: Acute Assessment and Plan: Lexiscan reviewed Appreciate Cardiology note. Conservative management (7) Type 2 diabetes mellitus with hyperglycemia: Qualifiers: Diabetes mellitus mcfp insulin use: without mcfp use Qualified Code(s): E11.65 - Type 2 diabetes mellitus with hyperglycemia Code(s): E11.65 - Type 2 diabetes mellitus with hyperglycemia Status: Acute Assessment and Plan: Lantus and SSI hb aic is 9 (8) Phimosis: Code(s): N47.1 - Phimosis Status: Acute Assessment and Plan: Follow up in the outpatient setting, seen by urology. (9) CAP (community acquired pneumonia): Code(s): J18.9 - Pneumonia, unspecified organism Status: Acute Assessment and Plan: Pneumonia [place] [id number], add breathing treatments today. improving. hopeful Dc tomorrow. Subjective Date/time seen: 12/12/20 11:30 Interval history: 70 year old male with a past medical history of diabetes, hypertension, hyperlipidemia, obesity, obstructive sleep apnea, BPH and chronic kidney disease who presented to the ER with dizziness, nausea and headache. Pt seen by nephrology, cardiology and urology. Pt had Ulloa removed. Pt had Lexiscan for elevated troponin and intermittent chest pain. Pt had cxr which shows pneumonia pt started on IV abx. Pt denies SOB or chest pain today, complains of dizziness when sitting up or turning his head. Discussed with ENT pt can follow with ENT Dr Lopez as a outpatient. Pt sob is much better, hopeful Dc tomorrow. Review of Systems Review of Systems: All systems reviewed & are unremarkable except as noted in HPI and below Exam Const: General: tired appearing and other (SOB on ambulation) Nutritional Appearance: overweight Orientation/consciousness: patient oriented x3 Chest: Breast/axilla inspection: Other (Decreased Breath sounds ) Resp: Effort & Inspection: able to speak in complete sentences Auscultation: clear to auscultation bilaterally Cardio: Jugular venous distension: no JVD Rate: regular rate Rhythm: regular rhythm GI: Inspection: distended, Pannus present and obesity Skin: Rashes: no rashes Neuro: General: patient oriented x3 and CN's II-XI intact bilaterally Cranial nerves: Yes CN's II-XII intact bilaterally, Yes Equal, round and reactive pupils present and Yes Bilaterally intact EOM present Cognition (Neuro): normal cognition Speech: normal speech Motor exam (neuro): Other motor observations present (bilateral lower ext 4/5 ) Extrem: General: no pedal edema Objective Data Vital Signs Vital Signs: Vital Signs - 24 hr 12/11/20 14:15 12/11/20 15:36 12/11/20 15:41 Temperature 36.2 C L Pulse Rate 74 77 7
[2020-12-12 12:06] LABS: Glucose Point of Care 204 (65-105)
[2020-12-12] MEDS: INSULIN ASPART (*BKC) 100 UNITS/ML SUB-Q ×2 (12:10→17:16)
--- NOTE | 2020-12-12 13:17 | PM.PNNEP ---
Progress Note: A&P Assessment and Plan (1) Acute kidney injury: Code(s): N17.9 - Acute kidney failure, unspecified Status: Acute Assessment and Plan: presumably due to volume depletion given presentation with orthostatic hypotension likely worsened by continued use of PRASHANTH-I and diuretics (torsemide + spironolactone) improvement noted s/p IVF hydration and holding any potential offending agents follow trend of repeat labs and UOP (2) Chronic kidney disease, stage IV (severe): Code(s): N18.4 - Chronic kidney disease, stage 4 (severe) Status: Acute Assessment and Plan: baseline creatinine 3.1mg/dl in October 2020 - hence, creatinine currently better than baseline - however, this improvement is partly related to holding diuretics and PRASHANTH-I (which will need to be restarted likely on discharge) presumably due to hypertension, diabetes, and vascular disease patient follows with Dr. Paul Piña for CKD management (3) Orthostatic hypotension: Code(s): I95.1 - Orthostatic hypotension Status: Resolved Assessment and Plan: better but seems to fluctuate given history of diabetes, may also have a component of autonomic dysfunction as well would resume torsemide on discharge but at half dosage (10mg instead) (4) CAP (community acquired pneumonia): Code(s): J18.9 - Pneumonia, unspecified organism Status: Acute Assessment and Plan: as noted by CXR follow cultures on antibiotics (5) Hypertension: Code(s): I10 - Essential (primary) hypertension Status: Acute Assessment and Plan: reasonable control at this time follow trend of hemodynamics (6) Diabetes: Code(s): E11.9 - Type 2 diabetes mellitus without complications Status: Acute Assessment and Plan: follow accuchecks glycemic control Will continue to follow - not opposed to discharge from renal perspective when otherwise medically stable; as noted above, would d/c on half torsemide home dose with labs in a week after discharge; he can follow-up with Dr. Piña in the office for ongoing CKD management. Subjective Date/time seen: 12/12/20 13:17 Respiratory status/breathing appears to have improved in the last 24 hours (due to addition of breathing treatment?); no other acute issues or events to report; no apparent distress voiced at the time of my visit; feels reasonably well. Exam Narrative: Exam Narrative: General: WD/WN male in NAD Heart: normal S1 and S2; no rub Lungs: decreased at the bases Abdomen: soft, nontender, nondistended, positive bowel sounds Extremities: no cyanosis or clubbing; no edema Skin: no nodules Objective Data Vital Signs Vital Signs: Vital Signs Temp Pulse Resp BP Pulse Ox 12/12/20 08:44 77 18 12/12/20 08:20 18 96 12/12/20 08:00 36.1 C L 80 20 168/58 H 100 12/12/20 06:00 35.9 C L 72 20 143/88 H 96 12/12/20 00:33 76 18 12/12/20 00:28 78 18 12/11/20 22:00 74 94 12/11/20 21:10 36.2 C L 84 22 H 104/65 95 12/11/20 21:09 128/76 12/11/20 20:48 84 12/11/20 15:41 77 18 12/11/20 15:36 77 18 Intake/Output Intake/Output: Intake & Output 12/09/20 12/10/20 12/11/20 12/12/20 23:59 23:59 23:59 23:59 Intake Total 1340 1635 1500 530 Output Total 1825 1325 1350 400 Balance -485 310 150 130 Meds/Results Medications: Active Medications Generic Name Dose Route Start Last Admin Trade Name Freq PRN Reason Stop Dose Admin Acetaminophen 650 mg 12/05/20 17:31 Acetaminophen 325 Mg Tablet PO Q6H PRN Mild Pain (1-3) or Fever Aspirin 81 mg 12/05/20 08:00 12/12/20 08:19 Aspirin 81 Mg Chewable Tablet PO 81 mg DAILY@0800 ISSAC Administration Atorvastatin Calcium 40 mg 12/05/20 09:00 12/12/20 08:49 Atorvastatin 40 Mg Tablet PO 40 mg DAILY ISSAC Administration Clotrimazole 1 appli
[2020-12-12 16:45] LABS: Glucose Point of Care 244 (65-105)
[2020-12-12] MEDS: METOPROLOL SUCCINATE EXT REL 100 MG TABCR PO (20:29)
[2020-12-12] MEDS: TAMSULOSIN HCL 0.4 MG CAPSULE 0.8 MG PO (20:29)
[2020-12-12] MEDS: OMEGA 3 POLYUNSAT FATTY ACIDS 1 GM CAP PO (20:30)
[2020-12-12 20:58] LABS: Glucose Point of Care 196 (65-105)
[2020-12-13] VITALS (9 sets, daily range): BP systolic 119–122; BP diastolic 61–70; PULSE 74–85; RESP 20–22; TEMP 35.9–36.6; O2SAT 97–98
[2020-12-13 05:19] LABS: Hematocrit 36.3 % (42.0-52.0); Hemoglobin 12.2 g/dL (14.0-18.0); Mean Corpuscular HGB Conc 33.6 g/dl (32-36); Mean Corpuscular Hemoglobin 32.5 pg (26-34); Mean Corpuscular Volume 96.8 fl (80-100); Mean Platelet Volume 12.3 fl (7.4-10.4); Platelet Count Result 176 k/mm3 (150-375); Red Blood Count 3.75 M/mm3 (4.6-6.20); Red Cell Distribution Width 14.7 % (11.5-14.5)
[2020-12-13 05:27] LABS: Albumin Level 3.3 g/dL (3.5-5.1); Anion Gap 8 mmol/L (8-16); Blood Urea Nitrogen 32 mg/dL (9-20); Calcium 8.5 mg/dL (8.4-10.2); Carbon Dioxide 21 mmol/L (22-30); Chloride 112 mmol/L (98-107); Estimated CRCL calculation 27 ml/min; Estimated Glomerular Filt Rate 23; Glucose 178 mg/dL (75-110); Potassium 3.8 mmol/L (3.4-5.0); Sodium 141 mmol/L (137-145)
--- NOTE | 2020-12-13 07:55 | P.PNNP_ITS ---
Progress Note: A&P Assessment and Plan (1) Acute kidney injury: Code(s): N17.9 - Acute kidney failure, unspecified Status: Acute Assessment and Plan: * presumably due to volume depletion given presentation with orthostatic hypotension * likely worsened by continued use of PRASHANTH-I and diuretics (torsemide + spironolactone) * improvement noted s/p IVF hydration and holding any potential offending agents * His creatinine seems to have returned to baseline * Okay for discharge from the kidney standpoint. (2) Chronic kidney disease, stage IV (severe): Code(s): N18.4 - Chronic kidney disease, stage 4 (severe) Status: Acute Assessment and Plan: * baseline creatinine 3.1mg/dl in October 2020 * presumably due to hypertension, diabetes, and vascular disease * patient follows with Dr. Paul Piña for CKD management and will return to him upon discharge (3) Orthostatic hypotension: Code(s): I95.1 - Orthostatic hypotension Status: Resolved Assessment and Plan: * better but seems to fluctuate * given history of diabetes, may also have a component of autonomic dysfunction as well * would resume torsemide on discharge but at half dosage (10mg instead of 20) (4) CAP (community acquired pneumonia): Code(s): J18.9 - Pneumonia, unspecified organism Status: Acute Assessment and Plan: * as noted by CXR * Blood cultures are negative. * on Levaquin (5) Hypertension: Code(s): I10 - Essential (primary) hypertension Status: Acute Assessment and Plan: * reasonable control at this time * follow trend of hemodynamics (6) Diabetes: Code(s): E11.9 - Type 2 diabetes mellitus without complications Status: Acute Assessment and Plan: * follow accuchecks * glycemic control Subjective Date/time seen: 12/13/20 07:55 Interval history: Juan Miguel is feeling better today. Eager for discharge. No chest pain or shortness of breath. Review of Systems Cardiovascular: Cardiovascular: Reports no additional cardiovascular complaints Respiratory: Respiratory: Reports no additional respiratory complaints Gastrointestinal: Gastrointestinal: Reports no additional gastrointestinal complaints Genitourinary: Genitourinary: Reports no additional male genitourinary complaints Exam Narrative: Exam Narrative: General: WD/WN male in NAD Heart: normal S1 and S2; no rub or gallop Lungs: Fairly clear Abdomen: soft, nontender, nondistended, positive bowel sounds Extremities: no cyanosis or clubbing; no edema Skin: no nodules or acute rash Objective Data Vital Signs Vital Signs: Vital Signs - 24 hr 12/12/20 08:00 12/12/20 08:20 12/12/20 08:44 Temperature 36.1 C L Pulse Rate 80 77 Respiratory Rate 20 18 18 Blood Pressure 168/58 H Pulse Oximetry 100 96 12/12/20 14:00 12/12/20 15:57 12/12/20 16:02 Temperature 36.2 C L Pulse Rate 80 83 83 Respiratory Rate 18 18 18 Blood Pressure 123/84 Pulse Oximetry 96 12/12/20 20:00 12/12/20 20:29 12/12/20 22:00 Temperature 36.2 C L Pulse Rate 85 87 Respiratory Rate 22 H Blood Pressure 144/82 H 124/70 Pulse Oximetry 95 12/12/20
--- NOTE | 2020-12-13 07:55 | PM.PNNEP ---
Progress Note: A&P Assessment and Plan (1) Acute kidney injury: Code(s): N17.9 - Acute kidney failure, unspecified Status: Acute Assessment and Plan: presumably due to volume depletion given presentation with orthostatic hypotension likely worsened by continued use of PRASHANTH-I and diuretics (torsemide + spironolactone) improvement noted s/p IVF hydration and holding any potential offending agents His creatinine seems to have returned to baseline Okay for discharge from the kidney standpoint. (2) Chronic kidney disease, stage IV (severe): Code(s): N18.4 - Chronic kidney disease, stage 4 (severe) Status: Acute Assessment and Plan: baseline creatinine 3.1mg/dl in October 2020 presumably due to hypertension, diabetes, and vascular disease patient follows with Dr. Paul Piña for CKD management and will return to him upon discharge (3) Orthostatic hypotension: Code(s): I95.1 - Orthostatic hypotension Status: Resolved Assessment and Plan: better but seems to fluctuate given history of diabetes, may also have a component of autonomic dysfunction as well would resume torsemide on discharge but at half dosage (10mg instead of 20) (4) CAP (community acquired pneumonia): Code(s): J18.9 - Pneumonia, unspecified organism Status: Acute Assessment and Plan: as noted by CXR Blood cultures are negative. on Levaquin (5) Hypertension: Code(s): I10 - Essential (primary) hypertension Status: Acute Assessment and Plan: reasonable control at this time follow trend of hemodynamics (6) Diabetes: Code(s): E11.9 - Type 2 diabetes mellitus without complications Status: Acute Assessment and Plan: follow accuchecks glycemic control Subjective Date/time seen: 12/13/20 07:55 Interval history: Juan Miguel is feeling better today. Eager for discharge. No chest pain or shortness of breath. Review of Systems Cardiovascular: Cardiovascular: Reports no additional cardiovascular complaints Respiratory: Respiratory: Reports no additional respiratory complaints Gastrointestinal: Gastrointestinal: Reports no additional gastrointestinal complaints Genitourinary: Genitourinary: Reports no additional male genitourinary complaints Exam Narrative: Exam Narrative: General: WD/WN male in NAD Heart: normal S1 and S2; no rub or gallop Lungs: Fairly clear Abdomen: soft, nontender, nondistended, positive bowel sounds Extremities: no cyanosis or clubbing; no edema Skin: no nodules or acute rash Objective Data Vital Signs Vital Signs: Vital Signs - 24 hr 12/12/20 08:00 12/12/20 08:20 12/12/20 08:44 Temperature 36.1 C L Pulse Rate 80 77 Respiratory Rate 20 18 18 Blood Pressure 168/58 H Pulse Oximetry 100 96 12/12/20 14:00 12/12/20 15:57 12/12/20 16:02 Temperature 36.2 C L Pulse Rate 80 83 83 Respiratory Rate 18 18 18 Blood Pressure 123/84 Pulse Oximetry 96 12/12/20 20:00 12/12/20 20:29 12/12/20 22:00 Temperature 36.2 C L Pulse Rate 85 87 Respiratory Rate 22 H Blood Pressure 144/82 H 124/70 Pulse Oximetry 95 12/12/20 22:04 12/12/20 23:07 12/13/20 00:32 Temperature Pulse Rate 81 81 Respiratory Rate 22 H Blood Pressure 148/115 H Pulse Oximetry 98 12/13/20 00:33 12/13/20 06:00 Temperature 36.6 C Pulse Rate 80 74 Respiratory Rate 20 20 Blood Pressure 119/61 Pulse Oximetry 98 Intake/Output Intake/Output: Intake & Output 12/10/20 12/11/20 12/12/20 12/13/20 23:59 23:59 23:59 23:59 Intake Total 1635 1500 970 100 Output Total 1325 1350 1200 500 Balance 310 150 -230 -400 Meds/Results Medications: Active Medications Generic Name Dose Route Start Last Admin Trade Name Freq PRN Reason Stop Dose Admin Acetaminophen 650 mg 12/05/20 17:31 Acetaminophen 325 Mg Tablet PO Q6H PRN Mild Pain (1-3) or Fever Aspirin 81 m
[2020-12-13 07:58] LABS: Glucose Point of Care 180 (65-105)
[2020-12-13] MEDS: MECLIZINE HCL 25 MG TABLET PO (08:20)
[2020-12-13] MEDS: ASPIRIN 81 MG CHEWABLE TABLET PO (08:20)
[2020-12-13] MEDS: FENOFIBRATE NANOCRYSTALLIZED 145 MG TABLET PO (08:20)
[2020-12-13] MEDS: FAMOTIDINE 20 MG TABLET PO (08:20)
[2020-12-13] MEDS: NIFEdipine 30 MG TAB.ER.24 90 MG PO (08:20)
[2020-12-13] MEDS: ENOXAPARIN 30 MG/0.3 ML SYRINGE SUB-Q (08:20)
[2020-12-13] MEDS: BETAMETHASONE/CLOTRIMAZOLE CR 15 GM TUBE 1 APPLIC TOPICAL (08:21)
[2020-12-13] MEDS: ATORVASTATIN 40 MG TABLET PO (08:21)
--- NOTE | 2020-12-13 10:15 | PM.DS ---
DS: Admitting Diagnosis Admitting Diagnosis Admitting Diagnosis: Dizziness, PAL and nausea DS: Discharge Diagnosis Discharge Diagnosis (1) Acute kidney injury superimposed on chronic kidney disease: Code(s): N17.9 - Acute kidney failure, unspecified; N18.9 - Chronic kidney disease, unspecified Status: Acute Assessment and Plan: Fluids stopped. Cr at 2.6. Ulloa out. Pt seen by nephrology,Pt is back to baseline can follow in his office.. (2) Orthostatic hypotension: Code(s): I95.1 - Orthostatic hypotension Status: Resolved Assessment and Plan: Iv fluids stopped, orthostatics are better (3) Hypertension: Code(s): I10 - Essential (primary) hypertension Status: Acute Assessment and Plan: Continue home meds (4) Postural dizziness with near syncope: Code(s): R42 - Dizziness and giddiness; R55 - Syncope and collapse Status: Resolved Assessment and Plan: As above pt can follow with ENT (5) Obstructive sleep apnea on CPAP: Code(s): G47.33 - Obstructive sleep apnea (adult) (pediatric); Z99.89 - Dependence on other enabling machines and devices Status: Acute Assessment and Plan: CPAP at night time. (6) Elevated troponin: Code(s): R77.8 - Other specified abnormalities of plasma proteins Status: Acute Assessment and Plan: Lexiscan reviewed Appreciate Cardiology note. Conservative management, pt can follow in cardiology office. 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 (9) CAP (community acquired pneumonia): Code(s): J18.9 - Pneumonia, unspecified organism Status: Acute Assessment and Plan: Pneumonia [place] [id number], add breathing treatments today. much improved, dischrage on oral abx and advair and albuterol inhaler, pt wants to follow in pulmonology office. DS: Summary Hospital Course Hospital Course: 70 year old male with a past medical history of diabetes, hypertension, hyperlipidemia, obesity, obstructive sleep apnea, BPH and chronic kidney disease who presented to the ER with dizziness, nausea and headache. Pt seen by nephrology, cardiology and urology. Pt had Ulloa removed. Pt had Lexiscan for elevated troponin and intermittent chest pain. Pt had cxr which shows pneumonia pt started on IV abx. Pt denies SOB or chest pain today, denies dizziness. P is stable for discharge with follow up with specialist. Time Spent with Patient Time attestation: Total time spent providing and/or coordinating discharge services:40 minutes on day of dischrage Exam Narrative: Exam Narrative: Comfortable Const: Nutritional Appearance: overweight Orientation/consciousness: patient oriented x3 Limitations: no limitations HENMT: Head: normocephalic Ears: hearing grossly normal bilaterally General nose exam: Normal external nose present Face and sinus: normal facial exam Eyes: General: appearance normal, both eyes and all related structures Pupils: Equal, round and reactive pupils present EOM: EOMs intact bilaterally Neck: Neck: no lymphadenopathy, supple and no JVD Chest: Breast/axilla inspection: Other (Decreased Breath sounds ) Resp: Effort & Inspection: able to speak in complete sentences Auscultation: clear to auscultation bilaterally Cardio: Jugular venous distension: no JVD Rate: regular rate Rhythm: regular rhythm GI: Inspection: distended, Pannus present and obesity Skin: Rashes: no rashes Neuro: General:
[2020-12-13 11:00] LABS: Glucose Point of Care 251 (65-105)
[2020-12-13] MEDS: INSULIN ASPART (*BKC) 100 UNITS/ML SUB-Q (11:37)
== END 2020-12-13 15:40 | disposition home health service (06) | DRG 682 ==
LOC: ANHED 21:23 → ANHIMU 12-05 08:48 → ANH2MED 12-05 11:16
PROVIDERS: Family Medicine; Internal Medicine; Internal Medicine Cardiovascular Disease; Internal Medicine Nephrology; Admitting Provider Internal Medicine; Emergency Provider Emergency Medicine; PCP Internal Medicine; Visit Provider Internal Medicine
DX: N17.9 Acute kidney failure, unspecified (principal); J18.9 Pneumonia, unspecified organism; Z68.42 Body mass index [BMI] 45.0-49.9, adult; I95.1 Orthostatic hypotension; I12.9 Hypertensive chronic kidney disease with stage 1 through stage 4 chronic kidney disease, or unspecified chronic kidney disease; E11.22 Type 2 diabetes mellitus with diabetic chronic kidney disease; N18.4 Chronic kidney disease, stage 4 (severe); N40.0 Benign prostatic hyperplasia without lower urinary tract symptoms; E11.65 Type 2 diabetes mellitus with hyperglycemia; E78.5 Hyperlipidemia, unspecified; E66.01 Morbid (severe) obesity due to excess calories; G47.33 Obstructive sleep apnea (adult) (pediatric); K58.9 Irritable bowel syndrome, unspecified; N47.1 Phimosis; K21.9 Gastro-esophageal reflux disease without esophagitis; Z98.1 Arthrodesis status; Z98.42 Cataract extraction status, left eye; Z98.41 Cataract extraction status, right eye; Z87.891 Personal history of nicotine dependence
CPT/HCPCS: 36415; 70450; 71045; 76775; 78452; 80048; 80053; 80069; 81001; 82043; 82570; 82948; 83036; 83605; 83735; 83880; 84156; 84484; 85025; 85027; 85055; 87040; 87086; 87088; 93005; 93017; 93306; 94640; 96360; 96361; 96372; 96374; 96376; 97110; 97116; 97161; 97165; 97530; 97535; 99285; A9270; A9502; G0378; J1650; J1815; J1956; J2785; J7030; Q9957